=== PATIENT | male | born 1960 | race Caucasian/White ===

== ENCOUNTER → 2016-07-10 | Outpatient (CLI) | payer OTHER ==
[~2016-07-10] MED LIST: ACCOLATE20 MG PO; ACCUNEB 0.0.63 MG/3 INH; ACTOS15 MG PO; AMARYL4 MG PO; AMITRIPTYLINE25 MG PO; ANAPROX DS550 MG PO; ASPI-COR81 M1 PO; ATIVAN1 MG PO; ATROVENT I0.5 MG/2.1 INH; Albuterol Sulfat3 M1 IH; B12,B-12,B 12500 MC1 PO; BRETHINE2.5 M1 PO; BYETTA10 MCG/0.0 SC; CIPROFLOXACIN500 MG PO; CLEOCIN HCL300 MG PO; CLEOCIN150 MG PO; CLOTRIMAZOLE ANTIF1% T; CLOTRIMAZOLE T; DIFLUCAN100 MG PO; ERGOCALCIFER50000 IU PO; FEOSOL45 MG PO; FLOVENT DI50 MCG/Act IH; FLUTICASON0.05 MG/A2 NAS; FLUTICASONE; Flovent 220 M220 MCG INH; GEMFIBROZIL600 MG PO; GOOD NEIGHBOR P20 MG PO; HUMULIN N100 U/ML SC; HUMULIN R100 U/ML SC; HYDROCODONE BIT1 T11 PO; IBU800 M1 PO; IPRATROPIUM 2.2.5 ML IH; JANUVIA100 MG PO; KEFLEX500 MG PO; LASIX40 MG PO; LOPID600 MG PO; LOPRESSOR25 MG PO; LOVAZA PO; LOVAZA1 GM PO; MAG-OX 400400 MG PO; METFORMIN1000 MG PO; METOCLOPRAMIDE5 MG PO; METOPROLOL TAR100 M1 PO; MOTRIN800 MG PO; MULTI VITAMINS1 TAB PO; MYCAMINE100 MG IV; NEURONTIN300 MG PO; NIACIN500 MG PO; NITRO SL; NITRO TRANS0.4 MG/HR TD; NOVOLIN 70/30 PE3 ML SC; NOVOLIN R100 U/ML SC; NOVOLOG 70/30 M10 ML SC; NOVOLOG MIX 70/33 ML SC; NOVOLOG1 UNIT/0.0 SC; OMEPRAZOLE D/R20 MG PO; OXYCODONE AND A1 T13 PO; PEPCID20 MG PO; PERCOCET 325 MG1 TA2 PO; PRINIVIL20 MG PO; PRO STAT; PROAIR HFA0.09 MG/AC IH; PROAIR HFA0.09 MG/AC INH; ROCEPHIN1 GM IV; SEPTRA DS 800 M1 TAB PO; SINGULAIR10 M1 PO; SINGULAIR10 MG PO; SINGULAIR4 MG; SINGULAIR5 MG PO; STRESS TABLETS1 TAB PO; SURFAK STOOL S240 MG PO; ULTRAM50 MG PO; VANCOCIN1000 MG/25 IV; VENTOLIN H0.09 MG/AC INH; VENTOLIN0.09 MG/AC INH; VICODIN1 TAB PO; VITAMIN D22000 UNIT PO; WELCHOL3.75 GM/Pa PO; ZESTRIL20 MG PO
[2016-07-10 12:33] LABS: BASO # 0.1 10*3/uL (0.0-0.1); BASO % 1.1 % (0.0-1.0); EOS # 0.5 10*3/uL (0.0-0.4); HEMATOCRIT 37.4 % (42.0-52.0); HEMOGLOBIN 12.5 g/dl (14.0-18.0); IG # 0.1 10*3/uL (0.0-0.1); LYMPH # 0.8 10*3/uL (1.3-4.4); LYMPH % 12.3 % (27.0-41.0); MEAN CELL VOLUME 85.6 fl (80.0-94.0); MEAN CORPUSCULAR HGB 28.6 pg (27.0-31.0); MEAN CORPUSCULAR HGB CONC 33.4 g/dl (33.0-37.0); MEAN PLATELET VOLUME 10.2 fl (9.6-12.3); MONO # 0.7 10*3/uL (0.1-1.0); MONO % 10.4 % (3.0-9.0); NEUT # 4.2 10*3/uL (2.3-7.9); NEUT % 67.2 % (47.0-73.0); PLATELET COUNT AUTOMATED 235 10*3/uL (130-400); RED BLOOD COUNT 4.37 10*6/uL (4.50-5.90); RED CELL DISTRI WIDTH 13.2 % (0-14.5); WHITE BLOOD COUNT 6.3 10*3/uL (4.8-10.8)
[2016-07-10 12:48] LABS: ALBUMIN 3.5 gm/dl (3.1-4.5); ALKALINE PHOSPHATASE 67 U/L (45-117); BILIRUBIN, DIRECT < 0.1 mg/dL (0.0-0.2); BILIRUBIN, TOTAL 0.2 mg/dl (0.2-1.0); BUN 16 mg/dl (7-24); CARBON DIOXIDE 21 mmol/L (21-32); CHLORIDE 98 mmol/L (98-107); EST GLOM FILT AFRICAN AMERICAN > 60 ml/min; GLUCOSE 284 mg/dL (65-99); POTASSIUM 5.1 mmol/L (3.5-5.1); SGOT/AST 64 IU/L (3-35); SGPT/ALT 39 U/L (12-78); SODIUM 132 mmol/L (136-145); TOTAL PROTEIN 8.2 gm/dL (6.4-8.2)
== END | disposition home or self-care (01) ==
LOC: LAB 12:01
PROVIDERS: Family Medicine
DX: R06.02 Shortness of breath (principal); R19.7 Diarrhea, unspecified; R11.2 Nausea with vomiting, unspecified; J02.9 Acute pharyngitis, unspecified; R05 Cough; R53.1 Weakness; I10 Essential (primary) hypertension; Z87.891 Personal history of nicotine dependence

== ENCOUNTER → 2017-03-08 | Outpatient (CLI) | payer OTHER ==
[2017-03-08 14:07] LABS: ALBUMIN 3.4 gm/dl (3.1-4.5); CREATININE 1.49 mg/dL (0.70-1.30); POTASSIUM 4.9 mmol/L (3.5-5.1); TOTAL PROTEIN 8.9 gm/dL (6.4-8.2)
[2017-03-08 14:14] LABS: THYROID STIM HORMONE (HS) 1.7 uIU/ml (0.358-4.75)
[2017-03-08 14:16] LABS: FREE T4 0.96 ng/dl (0.76-1.46)
== END | disposition home or self-care (01) ==
LOC: LAB 01:55
PROVIDERS: Internal Medicine Endocrinology, Diabetes & Metabolism
DX: E11.65 Type 2 diabetes mellitus with hyperglycemia (principal); E03.9 Hypothyroidism, unspecified; E55.9 Vitamin D deficiency, unspecified; E78.2 Mixed hyperlipidemia

== ENCOUNTER → 2017-03-11 | Outpatient (CLI) | payer OTHER ==
[2017-03-12 08:12] LABS: LDL CHOLESTEROL (DIRECT) 160 mg/dL (0-99)
== END | disposition home or self-care (01) ==
LOC: LAB 03:01
PROVIDERS: Internal Medicine Endocrinology, Diabetes & Metabolism
DX: E11.65 Type 2 diabetes mellitus with hyperglycemia (principal); E03.9 Hypothyroidism, unspecified; E55.9 Vitamin D deficiency, unspecified; E78.2 Mixed hyperlipidemia

== ENCOUNTER → 2017-03-16 | Outpatient (CLI) | payer OTHER ==
[~2017-03-16] MED LIST changes: +BENADRYL ALLERG25 M5 PO; +KENALOG 0.1%80 GM T
== END | disposition home or self-care (01) ==
LOC: RAD 13:23
DX: R10.84 Generalized abdominal pain (principal); R11.2 Nausea with vomiting, unspecified

== ENCOUNTER 2017-03-18 14:55 | Emergency (ER) | payer OTHER ==
[~2017-03-18] VITALS: Ht 165.1 cm; Wt 118.8 kg
[~2017-03-18 14:55] MED LIST changes: -BENADRYL ALLERG25 M5 PO; -KENALOG 0.1%80 GM T
[2017-03-18 16:06] LABS: BASO # 0.1 10*3/uL (0.0-0.1); BASO % 1.3 % (0.0-1.0); EOS # 0.4 10*3/uL (0.0-0.4); HEMATOCRIT 35.6 % (42.0-52.0); HEMOGLOBIN 12.1 g/dl (14.0-18.0); LYMPH # 1.7 10*3/uL (1.3-4.4); LYMPH % 26.1 % (27.0-41.0); MEAN CELL VOLUME 82.6 fl (80.0-94.0); MEAN CORPUSCULAR HGB 28.1 pg (27.0-31.0); MEAN PLATELET VOLUME 10.8 fl (9.6-12.3); MONO # 0.5 10*3/uL (0.1-1.0); MONO % 7.6 % (3.0-9.0); NEUT # 3.7 10*3/uL (2.3-7.9); NEUT % 58.5 % (47.0-73.0); PLATELET COUNT AUTOMATED 262 10*3/uL (130-400); RED BLOOD COUNT 4.31 10*6/uL (4.50-5.90); RED CELL DISTRI WIDTH 11.9 % (0-14.5); WHITE BLOOD COUNT 6.3 10*3/uL (4.8-10.8)
[2017-03-18 16:32] LABS: ALBUMIN 3.8 gm/dl (3.1-4.5); CREATININE 2.23 mg/dL (0.70-1.30); TOTAL PROTEIN 9.2 gm/dL (6.4-8.2)
[2017-03-18 16:35] LABS: POTASSIUM 6.2 mmol/L (3.5-5.1)
[2017-03-18] MEDS ORDERED: BENADRYL ALLERG25 M5 PO (16:48)
[2017-03-18] MEDS ORDERED: PEPCID20 MG PO (16:48)
[2017-03-18] MEDS ORDERED: KENALOG 0.1%80 GM T (16:48)
== END 2017-03-18 17:44 | disposition home or self-care (01) ==
LOC: ED 14:55
PROVIDERS: Physician Assistant
DX: T63.441A Toxic effect of venom of bees, accidental (unintentional), initial encounter (principal); R73.9 Hyperglycemia, unspecified; Z95.1 Presence of aortocoronary bypass graft; Z87.891 Personal history of nicotine dependence; Z98.890 Other specified postprocedural states; Z79.82 Long term (current) use of aspirin; Z79.899 Other long term (current) drug therapy; Z88.0 Allergy status to penicillin; Z88.6 Allergy status to analgesic agent; Z88.5 Allergy status to narcotic agent; Z88.8 Allergy status to other drugs, medicaments and biological substances; Y92.9 Unspecified place or not applicable

== ENCOUNTER → 2017-04-08 | Outpatient (CLI) | payer OTHER ==
[~2017-04-08] MED LIST changes: +BENADRYL ALLERG25 M5 PO; +KENALOG 0.1%80 GM T
== END | disposition home or self-care (01) ==
LOC: ORTHO 04:08
DX: M17.11 Unilateral primary osteoarthritis, right knee (principal); M21.061 Valgus deformity, not elsewhere classified, right knee; E11.9 Type 2 diabetes mellitus without complications

== ENCOUNTER 2017-09-19 13:58 | Emergency (ER) | payer OTHER ==
[~2017-09-19] VITALS: Ht 165.1 cm; Wt 120.2 kg
--- NOTE | ~2017-09-19 | EKG ---
[place], [place] ELECTROCARDIOGRAM REPORT NAME: KIT CRAWFORD UNIT #: [id number] ROOM: DOCTOR: FLACO FLORES MD,MAXIME BIRTHDATE: [birth year] DOS: 09/19/2017 Electrocardiogram done on 09/19/2017 at 3:12 p.m. The echocardiogram shows evidence of normal sinus rhythm with heart rate 75 beats per minute. Nonspecific ST-T changes noted. Possibility of old inferior myocardial infarction can be excluded. Poor R-wave progression was also noted. Rule out ischemia. MAXIME SAM MD CM:EKGRPT:ELECTROCARDIOGRAM REPORT [id number] MAXIME FLORES MD
[2017-09-19 14:45] LABS: BASO # 0.1 10*3/uL (0.0-0.1); BASO % 1.2 % (0.0-1.0); EOS # 0.5 10*3/uL (0.0-0.4); EOS % 8.3 % (1.0-4.0); HEMATOCRIT 33.7 % (42.0-52.0); HEMOGLOBIN 10.8 g/dl (14.0-18.0); LYMPH # 1.9 10*3/uL (1.3-4.4); LYMPH % 32.7 % (27.0-41.0); MEAN CELL VOLUME 84.9 fl (80.0-94.0); MEAN CORPUSCULAR HGB 27.2 pg (27.0-31.0); MONO # 0.6 10*3/uL (0.1-1.0); MONO % 9.9 % (3.0-9.0); NEUT # 2.7 10*3/uL (2.3-7.9); PLATELET COUNT AUTOMATED 287 10*3/uL (130-400); RED BLOOD COUNT 3.97 10*6/uL (4.50-5.90); RED CELL DISTRI WIDTH 13.8 % (0-14.5); WHITE BLOOD COUNT 5.7 10*3/uL (4.8-10.8)
[2017-09-19 14:54] LABS: ACT PARTIAL THROMBO TIME 24.4 SECONDS (20.8-31.5)
[2017-09-19 15:01] LABS: ALBUMIN 3.4 gm/dl (3.1-4.5); ALKALINE PHOSPHATASE 92 U/L (45-117); BUN 38 mg/dl (7-24); CHLORIDE 93 mmol/L (98-107); CREATININE 1.68 mg/dL (0.70-1.30); LIPASE 409 U/L (73-393); POTASSIUM 4.9 mmol/L (3.5-5.1); SGOT/AST 12 IU/L (3-35); SGPT/ALT 22 U/L (12-78); SODIUM 129 mmol/L (136-145); TOTAL PROTEIN 8.9 gm/dL (6.4-8.2)
[2017-09-19 15:02] LABS: TROPONIN I < 0.015 ng/ml (<0.045)
[2017-09-19 15:34] LABS: BILIRUBIN NEGATIVE (NEGATIVE); BLOOD NEGATIVE (NEGATIVE); CLARITY CLEAR (CLEAR); COLOR YELLOW (YELLOW); GLUCOSE 3+ (NEGATIVE); KETONE NEGATIVE (NEGATIVE); LEUKO ESTERASE NEGATIVE (NEGATIVE); NITRITE NEGATIVE (NEGATIVE); PH 5.5 (5.0-9.0); SPECIFIC GRAVITY <= 1.005 (1.005-1.030); UROBILINOGEN 0.2 E.U./dl (0.2-1.0)
[2017-09-19 15:44] LABS: BACTERIA TRACE; RBC 0-2 rbc/hpf (0-2); WBC 0-2 wbc/hpf (0-5)
== END 2017-09-19 16:40 | disposition home or self-care (01) ==
LOC: ED 13:58
PROVIDERS: Nurse Practitioner Family
DX: E11.65 Type 2 diabetes mellitus with hyperglycemia (principal); M79.2 Neuralgia and neuritis, unspecified; I25.10 Atherosclerotic heart disease of native coronary artery without angina pectoris; J44.9 Chronic obstructive pulmonary disease, unspecified; K21.9 Gastro-esophageal reflux disease without esophagitis; I10 Essential (primary) hypertension; E78.5 Hyperlipidemia, unspecified; E66.01 Morbid (severe) obesity due to excess calories; Z86.73 Personal history of transient ischemic attack (TIA), and cerebral infarction without residual deficits; Z98.890 Other specified postprocedural states; Z87.891 Personal history of nicotine dependence; Z95.1 Presence of aortocoronary bypass graft; Z79.899 Other long term (current) drug therapy; Z79.82 Long term (current) use of aspirin; Z79.4 Long term (current) use of insulin; Z88.0 Allergy status to penicillin; Z88.8 Allergy status to other drugs, medicaments and biological substances; Z88.5 Allergy status to narcotic agent; Z88.6 Allergy status to analgesic agent

== ENCOUNTER → 2018-01-19 | Outpatient (CLI) | payer OTHER ==
[2018-01-19 15:54] LABS: BASO # 0.1 10*3/uL (0.0-0.1); BASO % 0.8 % (0.0-1.0); EOS # 0.8 10*3/uL (0.0-0.4); EOS % 6.4 % (1.0-4.0); HEMOGLOBIN 10.6 g/dl (14.0-18.0); LYMPH # 3.3 10*3/uL (1.3-4.4); LYMPH % 28.2 % (27.0-41.0); MEAN CELL VOLUME 82.3 fl (80.0-94.0); MEAN CORPUSCULAR HGB 26.4 pg (27.0-31.0); MEAN CORPUSCULAR HGB CONC 32.1 g/dl (33.0-37.0); MEAN PLATELET VOLUME 10.1 fl (9.6-12.3); MONO # 0.7 10*3/uL (0.1-1.0); MONO % 5.8 % (3.0-9.0); NEUT # 6.8 10*3/uL (2.3-7.9); NEUT % 57.6 % (47.0-73.0); PLATELET COUNT AUTOMATED 342 10*3/uL (130-400); RED BLOOD COUNT 4.01 10*6/uL (4.50-5.90); RED CELL DISTRI WIDTH 12.4 % (0-14.5); WHITE BLOOD COUNT 11.8 10*3/uL (4.8-10.8)
[2018-01-19 16:14] LABS: ALBUMIN 3.5 gm/dl (3.1-4.5); ALKALINE PHOSPHATASE 83 U/L (45-117); BILIRUBIN, DIRECT < 0.1 mg/dL (0.0-0.2); BUN 44 mg/dl (7-24); CHLORIDE 95 mmol/L (98-107); CHOLESTEROL 329 mg/dL (<200); CREATININE 1.99 mg/dL (0.70-1.30); HDL CHOLESTEROL 32 mg/dl (40-60); POTASSIUM 5.7 mmol/L (3.5-5.1); SGOT/AST 10 IU/L (3-35); SGPT/ALT 12 U/L (12-78); SODIUM 129 mmol/L (136-145); THYROXINE (T4) TOTAL 4.7 ug/dl (4.5-12.1); TOTAL PROTEIN 8.6 gm/dL (6.4-8.2); TRIGLYCERIDES 803 mg/dl (<150)
== END | disposition home or self-care (01) ==
LOC: LAB 14:51
PROVIDERS: Family Medicine
DX: I10 Essential (primary) hypertension (principal); E88.81 Metabolic syndrome and other insulin resistance; I95.9 Hypotension, unspecified; E78.00 Pure hypercholesterolemia, unspecified; M19.90 Unspecified osteoarthritis, unspecified site; M54.5 Low back pain; Z91.81 History of falling

== ENCOUNTER 2018-05-15 12:32 | Emergency (ER) | payer OTHER ==
[~2018-05-15] VITALS: Ht 165.1 cm; Wt 104.8 kg
[~2018-05-15 12:32] MED LIST changes: -ACCUNEB 0.0.63 MG/3 INH; +ALBUTEROL0.63 MG/3 INH; +ALLOPURINOL100 MG PO; -ASPI-COR81 M1 PO; +ASPIR 8181 MG PO; +ATARAX,VISTARIL50 MG PO; -HUMULIN R100 U/ML SC; +HUMULIN R500 UNIT/1 SQ; +ISOSORBIDE DINI30 MG PO; +LOPID600 M1 PO; +NITROGLYCERIN0.4 MG SL; +NITROSTAT0.3 M1 SL; +ONDANSETRON HYDR4 MG PO; +PROVENTIL HFA6.7 GM INH; -VENTOLIN H0.09 MG/AC INH; -VITAMIN D22000 UNIT PO; +VITAMIN D50000 UNIT PO
[2018-05-15] MEDS ORDERED: PERCOCET 5-3251 EACH PO (13:02)
== END 2018-05-15 13:12 | disposition home or self-care (01) ==
LOC: ED 12:32
DX: E11.40 Type 2 diabetes mellitus with diabetic neuropathy, unspecified (principal); I10 Essential (primary) hypertension; J44.9 Chronic obstructive pulmonary disease, unspecified; I25.2 Old myocardial infarction; F17.200 Nicotine dependence, unspecified, uncomplicated; Z88.0 Allergy status to penicillin; Z88.8 Allergy status to other drugs, medicaments and biological substances; Z91.041 Radiographic dye allergy status; Z88.6 Allergy status to analgesic agent; Z79.82 Long term (current) use of aspirin; Z79.899 Other long term (current) drug therapy; Z79.84 Long term (current) use of oral hypoglycemic drugs; Z89.021 Acquired absence of right finger(s); Z95.1 Presence of aortocoronary bypass graft; Z86.73 Personal history of transient ischemic attack (TIA), and cerebral infarction without residual deficits

== ENCOUNTER 2018-07-23 13:50 | Emergency (ER) | payer OTHER ==
[~2018-07-23] VITALS: Wt 104.3 kg
[~2018-07-23 13:50] MED LIST changes: +PERCOCET 5-3251 EACH PO
[2018-07-23] MEDS ORDERED: PERCOCET 5-3251 EACH PO (16:00)
== END 2018-07-23 16:10 | disposition home or self-care (01) ==
LOC: ED 13:50
DX: S40.011A Contusion of right shoulder, initial encounter (principal); M54.2 Cervicalgia; M25.531 Pain in right wrist; R07.81 Pleurodynia; M79.644 Pain in right finger(s); R06.02 Shortness of breath; I25.10 Atherosclerotic heart disease of native coronary artery without angina pectoris; J44.9 Chronic obstructive pulmonary disease, unspecified; I10 Essential (primary) hypertension; K21.9 Gastro-esophageal reflux disease without esophagitis; E66.01 Morbid (severe) obesity due to excess calories; E78.5 Hyperlipidemia, unspecified; E11.40 Type 2 diabetes mellitus with diabetic neuropathy, unspecified; E11.621 Type 2 diabetes mellitus with foot ulcer; Z79.4 Long term (current) use of insulin; Z87.891 Personal history of nicotine dependence; W20.8XXA Other cause of strike by thrown, projected or falling object, initial encounter; Y93.89 Activity, other specified; Y92.89 Other specified places as the place of occurrence of the external cause; Y99.8 Other external cause status

== ENCOUNTER → 2018-08-07 | Outpatient (CLI) | payer OTHER ==
[2018-08-07 11:25] LABS: BASO # 0.1 10*3/uL (0.0-0.1); BASO % 1.2 % (0.0-1.0); EOS # 0.5 10*3/uL (0.0-0.4); EOS % 7.2 % (1.0-4.0); HEMATOCRIT 37.9 % (42.0-52.0); HEMOGLOBIN 12.6 g/dl (14.0-18.0); LYMPH # 3.2 10*3/uL (1.3-4.4); LYMPH % 46.9 % (27.0-41.0); MEAN CELL VOLUME 82.6 fl (80.0-94.0); MEAN CORPUSCULAR HGB 27.5 pg (27.0-31.0); MEAN CORPUSCULAR HGB CONC 33.2 g/dl (33.0-37.0); MEAN PLATELET VOLUME 9.8 fl (9.6-12.3); MONO # 0.5 10*3/uL (0.1-1.0); MONO % 7.1 % (3.0-9.0); NEUT # 2.6 10*3/uL (2.3-7.9); NEUT % 37.5 % (47.0-73.0); PLATELET COUNT AUTOMATED 295 10*3/uL (130-400); RED BLOOD COUNT 4.59 10*6/uL (4.50-5.90); WHITE BLOOD COUNT 6.8 10*3/uL (4.8-10.8)
[2018-08-07 11:52] LABS: ALBUMIN 3.3 gm/dl (3.1-4.5); ALKALINE PHOSPHATASE 78 U/L (45-117); BILIRUBIN, DIRECT < 0.1 mg/dL (0.0-0.2); BUN 25 mg/dl (7-24); CHLORIDE 98 mmol/L (98-107); CREATININE 1.23 mg/dL (0.70-1.30); POTASSIUM 4.6 mmol/L (3.5-5.1); SGOT/AST 17 IU/L (3-35); SGPT/ALT 21 U/L (12-78); SODIUM 134 mmol/L (136-145); TOTAL PROTEIN 8.3 gm/dL (6.4-8.2)
== END | disposition home or self-care (01) ==
LOC: LAB 10:57
PROVIDERS: Family Medicine
DX: I10 Essential (primary) hypertension (principal); M10.9 Gout, unspecified

== ENCOUNTER → 2018-10-09 | Outpatient (CLI) | payer OTHER | END | disposition home or self-care (01) | LOC: RAD 14:23 | DX: R07.81 Pleurodynia (principal); J44.9 Chronic obstructive pulmonary disease, unspecified; W19.XXXA Unspecified fall, initial encounter; Y93.89 Activity, other specified; Y92.89 Other specified places as the place of occurrence of the external cause; Y99.8 Other external cause status ==

== ENCOUNTER → 2018-11-25 | Outpatient (CLI) | payer OTHER | END | disposition home or self-care (01) | LOC: RAD 15:18 | DX: M47.816 Spondylosis without myelopathy or radiculopathy, lumbar region (principal) ==

== ENCOUNTER → 2019-02-17 | Outpatient (CLI) | payer OTHER | END | disposition home or self-care (01) | LOC: LAB 14:26 | DX: S31.109A Unspecified open wound of abdominal wall, unspecified quadrant without penetration into peritoneal cavity, initial encounter (principal); X58.XXXA Exposure to other specified factors, initial encounter; Y93.89 Activity, other specified; Y92.89 Other specified places as the place of occurrence of the external cause; Y99.8 Other external cause status ==

== ENCOUNTER → 2019-02-18 | Outpatient (CLI) | payer OTHER | END | disposition home or self-care (01) | LOC: LAB 10:22 | DX: R19.7 Diarrhea, unspecified (principal) ==

== ENCOUNTER 2019-04-25 15:47 | Inpatient (IN) | payer OTHER ==
[~2019-04-25] VITALS: Ht 170.1 cm; Wt 106.7 kg
[2019-04-25 15:54] VITALS: BP 157/76
[2019-04-25 16:20] LABS: BASO # 0.1 10*3/uL (0.0-0.1); BASO % 0.9 % (0.0-1.0); EOS # 0.3 10*3/uL (0.0-0.4); EOS % 3.6 % (1.0-4.0); HEMATOCRIT 37.6 % (42.0-52.0); HEMOGLOBIN 12.2 g/dl (14.0-18.0); LYMPH # 2.7 10*3/uL (1.3-4.4); LYMPH % 30.5 % (27.0-41.0); MEAN CELL VOLUME 83.6 fl (80.0-94.0); MEAN CORPUSCULAR HGB 27.1 pg (27.0-31.0); MEAN CORPUSCULAR HGB CONC 32.4 g/dl (33.0-37.0); MEAN PLATELET VOLUME 10.4 fl (9.6-12.3); MONO # 0.7 10*3/uL (0.1-1.0); MONO % 7.8 % (3.0-9.0); NEUT % 56.7 % (47.0-73.0); PLATELET COUNT AUTOMATED 247 10*3/uL (130-400); RED CELL DISTRI WIDTH 13.7 % (0-14.5); WHITE BLOOD COUNT 8.8 10*3/uL (4.8-10.8)
[2019-04-25 16:30] VITALS: BP 138/73
[2019-04-25 16:48] LABS: ACT PARTIAL THROMBO TIME 25.1 SECONDS (20.0-32.1); INTERNATIONAL NORM RATIO 0.9 (2.0-3.5)
[2019-04-25 16:55] LABS: ALKALINE PHOSPHATASE 73 U/L (45-117); BUN 22 mg/dl (7-24); CHLORIDE 106 mmol/L (98-107); CREATININE 0.99 mg/dL (0.70-1.30); POTASSIUM 4.5 mmol/L (3.5-5.1); SGOT/AST 14 IU/L (3-35); SGPT/ALT 15 U/L (12-78); SODIUM 136 mmol/L (136-145); TOTAL PROTEIN 7.6 gm/dL (6.4-8.2)
[2019-04-25 16:58] LABS: TROPONIN I 0.192 ng/ml (<0.045)
[2019-04-25 17:00] VITALS: BP 146/81
[2019-04-25 17:30] VITALS: BP 119/93
[2019-04-25 18:00] VITALS: BP 143/82
--- NOTE | 2019-04-25 18:29 | NUR ---
[facility] 59[facility] , under the services of AVEL Norman DO with a diagnosis of NONSTEMI. Chief complaint is CHEST PAIN. Patient arrived via bed from ER. Monitor applied. Initial assessment completed. Vital signs taken and recorded. AVEL NORMAN DO notified of admission to the unit. Orders received. See assessment for past medical history, medications and allergies. Patient and/or family oriented to unit. [facility] visitation policy reviewed. Clothing/patient valuable form completed. LONG PATEL
--- NOTE | 2019-04-25 18:48 | NUR ---
PT STATES HE IS UNSURE OF HOME MEDS. HE STATES HIS BROTHER WILL BRING THEM IN TOMORROW.
--- NOTE | 2019-04-25 19:00 | NUR ---
DR. TREJO NOTIFIED OF CRITICAL TROPONIN. NO ORDERS AT THIS TIME.
[2019-04-25 20:00] VITALS: BP 138/80
--- NOTE | 2019-04-25 21:08 | NUR ---
MESSAGE LEFT WITH DR. WHITE'S ANSWERING SERVICE ABOUT PT TRIGEMINY. DR SWAN ALSO NOTIFIED. NO ORDERS AT THIS TIME. PT ALERT AND VOICES NO COMPLAINTS.
--- NOTE | 2019-04-25 22:41 | NUR ---
DR. SWAN NOTIFIED OF CRITICAL TROPONIN. NO ORDERS AT THIS TIME.
--- NOTE | 2019-04-25 23:50 | NUR ---
PT HEPARIN DRIP INCREASED BY 2 UNITS PER PROTOCOL. VERIFIED WITH EM TURCIOS
[2019-04-26] VITALS: BP 138/79
--- NOTE | 2019-04-26 02:13 | NUR ---
DR. SWAN NOTIFIED OF PT BEING IN TRIGEMINY ON AND OFF. NO NEW ORDERS AT THIS TIME.
[2019-04-26 06:06] LABS: BUN 23 mg/dl (7-24); CHLORIDE 105 mmol/L (98-107); CHOLESTEROL 200 mg/dL (<200); CREATININE 0.97 mg/dL (0.70-1.30); HDL CHOLESTEROL 26 mg/dl (40-60); PHOSPHOROUS 2.9 mg/dL (2.5-4.9); SODIUM 137 mmol/L (136-145); TRIGLYCERIDES 553 mg/dl (<150)
[2019-04-26 06:12] LABS: BASO # 0.1 10*3/uL (0.0-0.1); BASO % 0.7 % (0.0-1.0); EOS # 0.3 10*3/uL (0.0-0.4); EOS % 4.5 % (1.0-4.0); HEMATOCRIT 34.1 % (42.0-52.0); HEMOGLOBIN 10.9 g/dl (14.0-18.0); LYMPH # 2.4 10*3/uL (1.3-4.4); LYMPH % 35.6 % (27.0-41.0); MEAN CELL VOLUME 83.8 fl (80.0-94.0); MEAN CORPUSCULAR HGB 26.8 pg (27.0-31.0); MEAN PLATELET VOLUME 10.3 fl (9.6-12.3); MONO # 0.6 10*3/uL (0.1-1.0); MONO % 8.8 % (3.0-9.0); NEUT # 3.4 10*3/uL (2.3-7.9); NEUT % 49.7 % (47.0-73.0); PLATELET COUNT AUTOMATED 219 10*3/uL (130-400); RED BLOOD COUNT 4.07 10*6/uL (4.50-5.90); RED CELL DISTRI WIDTH 13.7 % (0-14.5); WHITE BLOOD COUNT 6.8 10*3/uL (4.8-10.8)
--- NOTE | 2019-04-26 06:50 | NUR ---
HEPARIN DRIP INCREASED BY 2 UNITS PER PROTOCOL. VERIFIED BY EM TURCIOS
--- NOTE | 2019-04-26 08:30 | NUR ---
Patient resting quietly with no c/o discomfort. Respirations easy and regular. Vital signs stable. No overt distress. DHEERAJ POLANCO R
[2019-04-26 12:00] VITALS: BP 98/77
--- NOTE | 2019-04-26 15:00 | NUR ---
HEPARIN ADJUSTED PER POLICY. NEXT PTT ORDERED. DR WHITE IN TO SEE PT. HE STATES HEPARIN FOR 48 HRS.
[2019-04-26 16:00] VITALS: BP 148/63
[2019-04-26 20:00] VITALS: BP 145/59
--- NOTE | 2019-04-26 20:16 | NUR ---
PATIENT LAYING IN BED WATCHING TV. BLOOD SUGAR 249. COVEREGE GIVEN PER SLIDING SCALE. HEPARIN GTT INFUSING INTO LEFT UPPER ARM PER ORDER. LUNGS DIMINISHED BILATERALLY. NORMOACTIVE BS X4. 2+ BLE EDEMA NOTED. CALL LIGHT WITHIN REACH. BED LOCKED IN LOWEST POSITION.
--- NOTE | 2019-04-26 20:50 | NUR ---
PER PATIENT PRN NORCO EFFECTIVE.
--- NOTE | 2019-04-26 21:43 | NUR ---
PATIENT'S APTT 28.2. HERPARIN GTT INCREASED 2 UNITS/KG/HR PER ORDER TO 16.7 UNITS/KG/HR. VERIFIED WITH EM TURCIOS.
--- NOTE | 2019-04-26 22:38 | NUR ---
24 HR chart check completed.
[2019-04-27] VITALS: BP 157/72
[2019-04-27 04:09] LABS: BASO # 0.1 10*3/uL (0.0-0.1); BASO % 1.2 % (0.0-1.0); EOS # 0.4 10*3/uL (0.0-0.4); EOS % 5.4 % (1.0-4.0); HEMATOCRIT 35.6 % (42.0-52.0); HEMOGLOBIN 11.6 g/dl (14.0-18.0); LYMPH # 2.7 10*3/uL (1.3-4.4); LYMPH % 40.1 % (27.0-41.0); MEAN CELL VOLUME 83.4 fl (80.0-94.0); MEAN CORPUSCULAR HGB 27.2 pg (27.0-31.0); MEAN CORPUSCULAR HGB CONC 32.6 g/dl (33.0-37.0); MEAN PLATELET VOLUME 9.8 fl (9.6-12.3); MONO # 0.6 10*3/uL (0.1-1.0); MONO % 8.3 % (3.0-9.0); NEUT # 2.9 10*3/uL (2.3-7.9); NEUT % 44.1 % (47.0-73.0); PLATELET COUNT AUTOMATED 221 10*3/uL (130-400); RED BLOOD COUNT 4.27 10*6/uL (4.50-5.90); RED CELL DISTRI WIDTH 13.6 % (0-14.5); WHITE BLOOD COUNT 6.7 10*3/uL (4.8-10.8)
[2019-04-27 04:23] LABS: ALBUMIN 2.7 gm/dl (3.1-4.5); ALKALINE PHOSPHATASE 67 U/L (45-117); BUN 26 mg/dl (7-24); CHLORIDE 100 mmol/L (98-107); CREATININE 1.13 mg/dL (0.70-1.30); POTASSIUM 4.2 mmol/L (3.5-5.1); SGOT/AST 13 IU/L (3-35); SGPT/ALT 17 U/L (12-78); SODIUM 134 mmol/L (136-145); TOTAL PROTEIN 6.9 gm/dL (6.4-8.2)
--- NOTE | 2019-04-27 04:38 | NUR ---
NOTIFIED DR. PATTERSON THAT APTT WAS 36.6 AND HEPARIN GTT INCREASED FROM 16.7 UNITS/KG/HR TO 18.7 UNITS/KR/HR. EM TURCIOS VERIFIED. NO NEW ORDERS.
--- NOTE | 2019-04-27 06:36 | NUR ---
PATIENT'S BLOOD SUGAR WAS 258. COVERAGE GIVEN PER ORDER. HEPARIN GTT INFUSING AT 18.7 UNITS/KG/HR. PATIENT SITTING AT THE EDGE OF THE BED. CALL LIGHT WITHIN REACH.
[2019-04-27 08:00] VITALS: BP 144/70
--- NOTE | 2019-04-27 08:41 | NUR ---
KIT CRAWFORD [id number] Please refer to the physician's history and physical for past medical history, comorbid conditions, and allergies. Diagnosis: NSTEMI Bandar Score: 16,AT RISK WOUND DESCRIPTIONS: Wound Number: 1 Location of the wound: abdominal fold and periarea Type of wound: fungal Thickness: Partial Size: 27.0cm x 54.5cm x 0.1cm Tunneling: none Undermining: none Sinus Tract: none Presence of Exudate: Serous Amount: Light Color: Red Odor: Musty Periwound Skin Appearance: Normal Wound edges: approximated Pain (associated with wound): very tender to touch How does patient state this happened? pt stated that this has been going on since he had surgery several years ago Wound Number: 2 Location of the wound: gluteal cleft Type of wound: rash Thickness: Partial Size: 25.0cm x 9.5cm x <0.1cm Tunneling: none Undermining: none Sinus Tract: none Presence of Exudate: none Amount: None Color: Red with white plaques Odor: None Periwound Skin Appearance: Normal Wound edges: approximated Pain (associated with wound): none at time of assessment How does patient state this happened? pt stated that he has been treated for fungal in the past and the ointment is not working Wound Number: 3 Location of the wound: left side near ribs Type of wound: rash Thickness: Partial Size: 3.5cm x 5.0cm x <0.1cm Tunneling: none Undermining: none Sinus Tract: none Presence of Exudate: none Amount: None Color: Red with white plaques Odor: None Periwound Skin Appearance: Normal Wound edges: approximated Pain (associated with wound): none at time of assessment How does patient state this happened? pt stated that he has been treated for fungal in the past and the ointment is not working Wound Number: 4 Location of the wound: midl back Type of wound: rash Thickness: Partial Size: 19.0cm x 33.0cm x <0.1cm Tunneling: none Undermining: none Sinus Tract: none Presence of Exudate: none Amount: None Color: Red with white plaques Odor: None Periwound Skin Appearance: Normal Wound edges: approximated Pain (associated with wound): none at time of assessment How does patient state this happened? pt stated that he has been treated for fungal in the past and the ointment is not working Wound Number: 5 Location of the wound: left upper back Type of wound: rash Thickness: Partial Size: 12.0cm x 9.0cm x <0.1cm Tunneling: none Undermining: none Sinus Tract: none Presence of Exudate: none Amount: None Color: Red with white plaques Odor: None Periwound Skin Appearance: Normal Wound edges: approximated Pain (associated with wound): none at time of assessment How does patient state this happened? pt stated that he has been treated for fungal in the past and the ointment is not working Wound Number: 6 Location of the wound: right upper back Type of wound: rash Thickness: Partial Size: 4.0cm x 3.5cm x <0.1cm Tunneling: none Undermining: none Sinus Tract: none Presence of Exudate: none Amount: None Color: Red with white plaques Odor: None Periwound Skin Appearance: Normal Wound edges: approximated Pain (associated with wound): none at time of assessment How does patient state this happened? pt stated that he has been treated for fungal in the past and the ointment is not working Surface the patient is resting on: Position Pro SKIN PREVENTION RECOMMENDATION: 1. Pressure redistribution support surface as appropriate 2. Elevate heels 3. Remove boots/TEDS every shift and reapply 4. Head of bed 30 degrees as tolerated 5. Assess nutrition and hydration 6. Manage moisture 7. Avoid the use of containment devices while in bed 8. Use absorptive products on surfaces limit layers of linens on bed 9. Turn and reposition every 1-2 hours in bed and every 1 hour in chair as tolerated 10. Weight shifts every 15 minutes while up in chair 11. Offloading with pillows or device to keep heels elevated off bed 12. Monitor skin at least every shift 13. Inspect under medical devices twice a day WOUND TREATMENT RECOMMENDATIONS: Heel raiser pro boots to bilateral feet while in bed. Cleanse areas to left side near ribs, mid back, left upper back and right upper back with soap and water and apply hydrocortison 0.5% BID. Cleanse abdominal fold and roland area with soap and water and pat dry then apply nystatin powder BID.Heel raiser pro boots to bilateral feet while in bed.
--- NOTE | 2019-04-27 11:58 | NUR ---
Sweetie RIDDLE APARTMENT MAINTENANCE TECHNICIAN NOTIFIED OF APTT AND AJUSTMENT PER POLICY FOR HEPARIN GTT. NEW APTT ORDERED PER POLICY.
[2019-04-27 12:00] VITALS: BP 155/60
--- NOTE | 2019-04-27 13:13 | NUR ---
Bow Stapler in to talk to patient. Patient states lives at home with brother. There are few steps in the home. Physician: tejinder Pharmacy: [facility] Home health services: none Patient's level of ADLs: MINIMAL ASSIST Patient has working utilities: all working DME: electric wheelchair Follow-up physician's appointment after d/c: will be made by hospitalist nruse director upon discharge Does patient want to access PORTAL?: no Discharge plan discussed with patient, he states he lives in a two story home with his brother, he stated he stays on one floor, he has an electric wheelchair that he uses for ambulation and is independent in adls, he states he will return home when medically stable, discussed with him VNA and he declines any home needs at this time, case management will follow. JUAN CARLOS CROWE
--- NOTE | 2019-04-27 15:25 | NUR ---
ORDERS RECEIVED TO STOP HEPARIN AT 1730 PER M JANESSA HOUSER
[2019-04-27 16:00] VITALS: BP 142/67
--- NOTE | 2019-04-27 16:21 | NUR ---
Echo in progress.
[2019-04-27 20:00] VITALS: BP 117/63
--- NOTE | 2019-04-27 20:13 | NUR ---
PATIENT LAYING IN BED. BLOOD SUGAR WAS 302. HUMALOG GIVEN PER SLIDING SCALE. EDUCATED PATIENT ON ADA 1800 DIET AFTER PATIENT STATED HE ATE ICE CREAM AND CAKE WITH DINNER. PATIENT DENIES ANY OTHER NEEDS AT THIS TIME. CALL LIGHT WITHIN REACH. BED LOCKED IN LOWEST POSITION. PATIENT DENIES CHEST PAIN.
[2019-04-28] VITALS: BP 129/55
--- NOTE | 2019-04-28 01:18 | NUR ---
Patient resting quietly in bed with no c/o discomfort. Respirations easy and regular. Vital signs stable. No overt distress. Call light within reach. HISSOM,CALLIE
--- NOTE | 2019-04-28 02:03 | NUR ---
24 HR chart check completed.
--- NOTE | 2019-04-28 03:49 | NUR ---
Patient sleeping. Respirations relaxed and easy. Siderails up . [place] on. Call light within reach HISSOM,CALLIE
--- NOTE | 2019-04-28 04:30 | NUR ---
Patient stated he will continue to care for these areas upon discharge as he has done in the past
--- NOTE | 2019-04-28 05:56 | NUR ---
BLOOD SUGAR 285
--- NOTE | 2019-04-28 08:30 | NUR ---
Patient resting quietly with no c/o discomfort. Respirations easy and regular. Vital signs stable. No overt distress. DHEERAJ POLANCO R
--- NOTE | 2019-04-28 09:00 | NUR ---
case management visits with patient, he stated he would be discharged to home today, discussed with him VNA and he declines any home services
[2019-04-28 12:00] VITALS: BP 132/59
[2019-04-28] MEDS ORDERED: CLOPIDOGREL75 MG PO (14:03)
[2019-04-28] MEDS ORDERED: HUMALOG100 UNIT/1 SQ (14:03)
[2019-04-28] MEDS ORDERED: Humalog SQ (14:03)
[2019-04-28] MEDS ORDERED: ATORVASTATIN CA40 M1 PO (14:03)
[2019-04-28] MEDS ORDERED: MONTELUKAST SOD10 MG PO (14:03)
[2019-04-28] MEDS ORDERED: Lantus SC (14:06)
[2019-04-28] MEDS ORDERED: LASIX40 MG PO (14:08)
--- NOTE | 2019-04-28 15:14 | NUR ---
Discharge instructions reviewed with patient/family. Patient receptive and verbalizes understanding. Follow-up care arranged. Written instructions given to patient/family. DHEERAJ POLANCO
== END 2019-04-28 15:14 | disposition home or self-care (01) | DRG 190 ==
LOC: ED 15:47 → EDHOLD 17:32 → 4E 17:32
PROVIDERS: Emergency Medicine; Student in an Organized Health Care Education/Training Program; ADMIT Internal Medicine
DX: I21.4 Non-ST elevation (NSTEMI) myocardial infarction (principal); I50.23 Acute on chronic systolic (congestive) heart failure; E66.01 Morbid (severe) obesity due to excess calories; E44.0 Moderate protein-calorie malnutrition; J44.9 Chronic obstructive pulmonary disease, unspecified; E78.5 Hyperlipidemia, unspecified; I25.10 Atherosclerotic heart disease of native coronary artery without angina pectoris; E83.42 Hypomagnesemia; I11.0 Hypertensive heart disease with heart failure; G47.33 Obstructive sleep apnea (adult) (pediatric); D64.9 Anemia, unspecified; E11.40 Type 2 diabetes mellitus with diabetic neuropathy, unspecified; K21.9 Gastro-esophageal reflux disease without esophagitis; Z79.4 Long term (current) use of insulin; Z88.0 Allergy status to penicillin; Z88.8 Allergy status to other drugs, medicaments and biological substances; Z88.6 Allergy status to analgesic agent; Z91.041 Radiographic dye allergy status; Z95.1 Presence of aortocoronary bypass graft; Z89.021 Acquired absence of right finger(s); Z87.891 Personal history of nicotine dependence; Z80.1 Family history of malignant neoplasm of trachea, bronchus and lung; Z83.3 Family history of diabetes mellitus; Z82.49 Family history of ischemic heart disease and other diseases of the circulatory system; Z86.73 Personal history of transient ischemic attack (TIA), and cerebral infarction without residual deficits; Z79.82 Long term (current) use of aspirin; Z79.899 Other long term (current) drug therapy; Z68.37 Body mass index [BMI] 37.0-37.9, adult

== ENCOUNTER → 2019-08-05 | Outpatient (CLI) | payer OTHER ==
[~2019-08-05] MED LIST changes: +ATORVASTATIN CA40 M1 PO; +CLOPIDOGREL75 MG PO; +HUMALOG100 UNIT/1 SQ; +Humalog SQ; +Lantus SC; +MONTELUKAST SOD10 MG PO
[2019-08-05 13:11] LABS: BASO # 0.1 10*3/uL (0.0-0.1); BASO % 1.4 % (0.0-1.0); EOS # 0.4 10*3/uL (0.0-0.4); EOS % 6.2 % (1.0-4.0); HEMOGLOBIN 12.7 g/dl (14.0-18.0); LYMPH # 1.9 10*3/uL (1.3-4.4); LYMPH % 32.9 % (27.0-41.0); MEAN CELL VOLUME 83.9 fl (80.0-94.0); MEAN CORPUSCULAR HGB 27.3 pg (27.0-31.0); MEAN CORPUSCULAR HGB CONC 32.6 g/dl (33.0-37.0); MEAN PLATELET VOLUME 10.3 fl (9.6-12.3); MONO # 0.4 10*3/uL (0.1-1.0); MONO % 6.7 % (3.0-9.0); NEUT # 3.1 10*3/uL (2.3-7.9); NEUT % 52.1 % (47.0-73.0); PLATELET COUNT AUTOMATED 212 10*3/uL (130-400); RED BLOOD COUNT 4.65 10*6/uL (4.50-5.90); RED CELL DISTRI WIDTH 13.1 % (0-14.5); WHITE BLOOD COUNT 5.8 10*3/uL (4.8-10.8)
[2019-08-05 13:49] LABS: ALBUMIN 3.2 gm/dl (3.1-4.5); ALKALINE PHOSPHATASE 68 U/L (45-117); BUN 26 mg/dl (7-24); CHLORIDE 97 mmol/L (98-107); CHOLESTEROL 217 mg/dL (<200); CREATININE 1.49 mg/dL (0.70-1.30); HDL CHOLESTEROL 27 mg/dl (40-60); POTASSIUM 4.7 mmol/L (3.5-5.1); SGOT/AST 11 IU/L (3-35); SGPT/ALT 19 U/L (12-78); SODIUM 130 mmol/L (136-145); THYROXINE (T4) TOTAL 8.9 ug/dl (4.5-12.1)
[2019-08-05 13:56] LABS: BILIRUBIN, DIRECT < 0.1 mg/dL (0.0-0.2); TOTAL PROTEIN 7.8 gm/dL (6.4-8.2); TRIGLYCERIDES 923 mg/dl (<150)
== END | disposition home or self-care (01) ==
LOC: LAB 12:37
PROVIDERS: Family Medicine
DX: S14.159A Other incomplete lesion at unspecified level of cervical spinal cord, initial encounter (principal); M47.892 Other spondylosis, cervical region; M46.02 Spinal enthesopathy, cervical region; I10 Essential (primary) hypertension; E11.9 Type 2 diabetes mellitus without complications; I25.10 Atherosclerotic heart disease of native coronary artery without angina pectoris; X58.XXXA Exposure to other specified factors, initial encounter; Y93.89 Activity, other specified; Y92.89 Other specified places as the place of occurrence of the external cause; Y99.8 Other external cause status

== ENCOUNTER → 2019-12-25 | Outpatient (CLI) | payer OTHER ==
[2019-12-25 10:57] LABS: ALBUMIN 2.9 gm/dl (3.1-4.5); ALKALINE PHOSPHATASE 86 U/L (45-117); BUN 20 mg/dl (7-24); CHLORIDE 94 mmol/L (98-107); CHOLESTEROL 241 mg/dL (<200); CREATININE 1.44 mg/dL (0.70-1.30); FREE T4 1.24 ng/dl (0.76-1.46); HDL CHOLESTEROL 28 mg/dl (40-60); POTASSIUM 4.7 mmol/L (3.5-5.1); SGOT/AST 3 IU/L (3-35); SGPT/ALT 14 U/L (12-78); SODIUM 129 mmol/L (136-145); TOTAL PROTEIN 7.6 gm/dL (6.4-8.2); TRIGLYCERIDES 861 mg/dl (<150)
[2019-12-26 04:05] LABS: LDL CHOLESTEROL (DIRECT) 110 mg/dL (0-99)
== END | disposition home or self-care (01) ==
LOC: LAB 09:52
PROVIDERS: Internal Medicine Endocrinology, Diabetes & Metabolism
DX: E03.9 Hypothyroidism, unspecified (principal); E55.9 Vitamin D deficiency, unspecified; E11.65 Type 2 diabetes mellitus with hyperglycemia; E78.2 Mixed hyperlipidemia

== ENCOUNTER 2020-01-11 15:51 | Emergency (ER) | payer OTHER ==
[~2020-01-11] VITALS: Ht 165.1 cm; Wt 90.7 kg
[2020-01-11] MEDS ORDERED: TYLENOL W/CODEI1 TA4 PO (18:10)
== END 2020-01-11 18:04 | disposition home or self-care (01) ==
LOC: ED 15:51
DX: S60.212A Contusion of left wrist, initial encounter (principal); I10 Essential (primary) hypertension; K21.9 Gastro-esophageal reflux disease without esophagitis; I25.10 Atherosclerotic heart disease of native coronary artery without angina pectoris; E78.5 Hyperlipidemia, unspecified; J44.9 Chronic obstructive pulmonary disease, unspecified; Z88.8 Allergy status to other drugs, medicaments and biological substances; Z88.0 Allergy status to penicillin; Z79.899 Other long term (current) drug therapy; Z79.82 Long term (current) use of aspirin; X58.XXXA Exposure to other specified factors, initial encounter; Y93.89 Activity, other specified; Y92.89 Other specified places as the place of occurrence of the external cause; Y99.8 Other external cause status

== ENCOUNTER → 2020-03-18 | Outpatient (CLI) | payer OTHER ==
[~2020-03-18] MED LIST changes: +TYLENOL W/CODEI1 TA4 PO
[2020-03-18 13:00] LABS: ALBUMIN 3.2 gm/dl (3.1-4.5); CREATININE 1.47 mg/dL (0.70-1.30); FREE T4 1.12 ng/dl (0.76-1.46); POTASSIUM 4.3 mmol/L (3.5-5.1); TOTAL PROTEIN 8.5 gm/dL (6.4-8.2)
[2020-03-18 13:04] LABS: THYROID STIM HORMONE (HS) 3.02 uIU/ml (0.358-4.75)
[2020-03-19 07:06] LABS: LDL CHOLESTEROL (DIRECT) 99 mg/dL (0-99)
== END | disposition home or self-care (01) ==
LOC: LAB 12:09
PROVIDERS: ATTEND Internal Medicine Endocrinology, Diabetes & Metabolism
DX: E11.65 Type 2 diabetes mellitus with hyperglycemia (principal); E03.9 Hypothyroidism, unspecified; E78.2 Mixed hyperlipidemia; E55.9 Vitamin D deficiency, unspecified

== ENCOUNTER 2020-04-10 19:10 | Inpatient (IN) | payer OTHER ==
[~2020-04-10] VITALS: Ht 172.7 cm; Wt 111.1 kg
[2020-04-10 19:54] VITALS: BP 159/83
[2020-04-10 21:21] LABS: BASO # 0.1 10*3/uL (0.0-0.1); BASO % 0.8 % (0.0-1.0); EOS # 0.3 10*3/uL (0.0-0.4); EOS % 2.6 % (1.0-4.0); HEMATOCRIT 42.1 % (42.0-52.0); LYMPH # 2.1 10*3/uL (1.3-4.4); LYMPH % 22.2 % (27.0-41.0); MEAN CELL VOLUME 83.7 fl (80.0-94.0); MEAN CORPUSCULAR HGB 26.2 pg (27.0-31.0); MEAN CORPUSCULAR HGB CONC 31.4 g/dl (33.0-37.0); MEAN PLATELET VOLUME 10.9 fl (9.6-12.3); MONO # 0.8 10*3/uL (0.1-1.0); MONO % 8.4 % (3.0-9.0); NEUT # 6.3 10*3/uL (2.3-7.9); NEUT % 65.3 % (47.0-73.0); PLATELET COUNT AUTOMATED 257 10*3/uL (130-400); RED BLOOD COUNT 5.03 10*6/uL (4.50-5.90); RED CELL DISTRI WIDTH 14.3 % (0-14.5); WHITE BLOOD COUNT 9.6 10*3/uL (4.8-10.8)
[2020-04-10 21:46] LABS: TROPONIN I 0.154 ng/ml (<0.045)
[2020-04-10 21:55] LABS: ALBUMIN 2.9 gm/dl (3.1-4.5); ALKALINE PHOSPHATASE 76 U/L (45-117); BUN 30 mg/dl (7-24); CHLORIDE 108 mmol/L (98-107); CREATININE 1.01 mg/dL (0.70-1.30); LIPASE 94 U/L (73-393); POTASSIUM 5.6 mmol/L (3.5-5.1); SGOT/AST 38 IU/L (3-35); SGPT/ALT 31 U/L (12-78); SODIUM 135 mmol/L (136-145); TOTAL PROTEIN 7.1 gm/dL (6.4-8.2)
[2020-04-10 22:46] LABS: ACT PARTIAL THROMBO TIME < 20.0 SECONDS (20.0-32.1)
[2020-04-10 22:58] LABS: BILIRUBIN Negative (Negative); BLOOD Negative (Negative); CLARITY Clear (Clear); COLOR Yellow (Yellow); GLUCOSE Trace (Negative); KETONE Negative (Negative); LEUKO ESTERASE Negative (Negative); NITRITE Negative (Negative); UROBILINOGEN 0.2 E.U./dl (0.0-1.0)
[2020-04-10 23:09] LABS: WBC 0-2 wbc/hpf (0-5)
--- NOTE | 2020-04-10 23:56 | NUR ---
[facility] 60[facility] under the services of CARLOTTA Joseph DO with a diagnosis of CHF, DYSPNEA, CHEST PAIN. Chief complaint is SOB. Patient arrived via wheel chair from ER. Monitor applied. Initial assessment completed. Vital signs taken and recorded. CARLOTTA JOSEPH DO notified of admission to the unit. Orders received. See assessment for past medical history, medications and allergies. Patient and/or family oriented to unit. [facility] visitation policy reviewed. Clothing/patient valuable form completed. MARLON LORENZANA
[2020-04-11] VITALS (8 sets, daily range): BP systolic 107–177; BP diastolic 48–102
--- NOTE | 2020-04-11 00:04 | NUR ---
A 60, admitted to [facility], under the services of CARLOTTA Joseph DO with a diagnosis of CHF, DYSPNEA, CHEST PAIN. Chief complaint is SOB, CHEST PAIN. Patient arrived via ambulance from ER. Monitor applied. Initial assessment completed. Vital signs taken and recorded. CARLOTTA JOSEPH DO notified of admission to the unit. Orders received. See assessment for past medical history, medications and allergies. Patient and/or family oriented to unit. [facility] visitation policy reviewed. Clothing/patient valuable form completed. MARLON LORENZANA A
--- NOTE | 2020-04-11 00:06 | NUR ---
REFUSING TO ALLOW STAFF TO REMOVE DRESSING TO LEFT HEEL FOR ADMISSION PICTURES/MEASUREMENTS. STATES HE SEES THE WOUND CARE CLINIC FOR ALL CARE TO IT.
--- NOTE | 2020-04-11 00:32 | NUR ---
CONSULT CALLED TO ANSWERING SERVICE.
[2020-04-11] MEDS ORDERED: LEVOTHYROXINE50 MCG PO (00:34)
[2020-04-11] MEDS ORDERED: VASCEPA1 G1 PO (00:35)
[2020-04-11] MEDS ORDERED: 24 HOUR ALLER15.8 ML INH (00:36)
[2020-04-11] MEDS ORDERED: IBU800 M1 PO (00:40)
[2020-04-11] MEDS ORDERED: ATARAX,VISTARIL50 MG PO (00:41)
[2020-04-11] MEDS ORDERED: MONTELUKAST SOD10 MG PO (00:42)
[2020-04-11] MEDS ORDERED: DOXEPIN HCL10 MG PO (00:43)
--- NOTE | 2020-04-11 00:46 | NUR ---
AWARE MED REC WAS UPDATED, ALSO INFORMED THAT PT HAS A LEFT HEEL WOUND AND REFUSED ASSESSMENT. SAID HE WOULD PUT ORDERS IN AND HAVE WOUND CARE SEE HIM IN THE MORNING.
--- NOTE | 2020-04-11 01:00 | NUR ---
PATIENT TO DECON FOR A SHOWER AT THIS TIME. 1 NURSE AND 1 JAVA DEVELOPER WITH SECURITY CLEARANCE NOTED BUGS ON PATIENT. PATIENT THEN MOVED INTO ROOM 2005 AT THIS TIME.
--- NOTE | 2020-04-11 01:53 | NUR ---
UPDATED PATIENTS BROTHER AT THIS TIME. PATIENT GAVE VERBAL CONSENT TO SPEAK WITH BROTHER AT THIS TIME.
--- NOTE | 2020-04-11 05:40 | NUR ---
PATIENT RESTING IN BED AT THIS TIME. PROVIDED PATIENT WITH PILLOW AND EXTRA BLANKETS PER HIS REQUEST. RESPIRATIONS EASY, NON-LABORED ON ROOM AIR. NO DISTRESS NOTED. PATIENT DENIES ANY FURTHER NEEDS. RN WILL CONTINUE TO MONITOR.
[2020-04-11 06:14] LABS: BASO # 0.1 10*3/uL (0.0-0.1); BASO % 0.6 % (0.0-1.0); EOS # 0.3 10*3/uL (0.0-0.4); HEMATOCRIT 36.8 % (42.0-52.0); LYMPH # 2.3 10*3/uL (1.3-4.4); LYMPH % 26.8 % (27.0-41.0); MEAN CELL VOLUME 84.4 fl (80.0-94.0); MEAN CORPUSCULAR HGB 26.6 pg (27.0-31.0); MEAN CORPUSCULAR HGB CONC 31.5 g/dl (33.0-37.0); MEAN PLATELET VOLUME 10.2 fl (9.6-12.3); MONO # 0.6 10*3/uL (0.1-1.0); MONO % 7.5 % (3.0-9.0); NEUT # 5.1 10*3/uL (2.3-7.9); NEUT % 60.6 % (47.0-73.0); PLATELET COUNT AUTOMATED 277 10*3/uL (130-400); RED BLOOD COUNT 4.36 10*6/uL (4.50-5.90); RED CELL DISTRI WIDTH 14.1 % (0-14.5); WHITE BLOOD COUNT 8.4 10*3/uL (4.8-10.8)
[2020-04-11 06:23] LABS: ACT PARTIAL THROMBO TIME 27.6 SECONDS (20.0-32.1)
[2020-04-11 06:40] LABS: ALBUMIN 2.9 gm/dl (3.1-4.5); BUN 27 mg/dl (7-24); CHLORIDE 106 mmol/L (98-107); SODIUM 141 mmol/L (136-145)
[2020-04-11 06:45] LABS: ALKALINE PHOSPHATASE 74 U/L (45-117); CREATININE 1.03 mg/dL (0.70-1.30); SGOT/AST 20 IU/L (3-35); SGPT/ALT 23 U/L (12-78); TOTAL PROTEIN 7.3 gm/dL (6.4-8.2)
[2020-04-11 06:47] LABS: POTASSIUM 4.4 mmol/L (3.5-5.1)
--- NOTE | 2020-04-11 07:46 | NUR ---
THE RX WAS CALLED FOR THE PATIENTS NEURONTIN AND SYNTHROID
--- NOTE | 2020-04-11 08:30 | NUR ---
THE RECIEVING NURSE WAS GIVEN THE NEURONTON AND SYNTHROID TABLETS.
--- NOTE | 2020-04-11 08:42 | NUR ---
0730 THE PATIENT DID NOT WANT TO TAKE HIS NEURONTIN AND SYNTHROID DUE TO NAUSEA BSG WAS 130, NO COVERAGE WAS GIVEN DUE TO THE PATIENT HAD NOT ORDERED HIS BREAKFAST YET. HE WASNT SURE WHEN HE WOULD
--- NOTE | 2020-04-11 09:58 | NUR ---
Carmella Wei [facility]- notified of wound care consult at this time.
--- NOTE | 2020-04-11 12:34 | NUR ---
Web Marketing Intern in to talk to patient. Patient states lives at HOME with ALONE. There are NO steps in the home. Physician: PARMINDER Pharmacy: [facility] Home health services: NONE Patient's level of ADLs: INDEPENDENT Patient has working utilities: YES DME: MOTORIZED WHEEL CHAIR, C PAP, NEBULIZER Follow-up physician's appointment after d/c: WILL BE MADE BY HOSPITALIST NURSE DIRECTOR Does patient want to access PORTAL?: NO Discharge plan PT LIVES AT HOME ALONE, STATES HIS BROTHERS CHECK IN ON HIM. TALKED WITH PT ABOUT HOME HEALTH AND HE IS AGREEABLE. WHEN GIVEN LIST HE CHOSE [facility]. WILL SEND REFERRAL WHEN ORDER RECEIVED. WILL CONTINUE TO FOLLOW. STATES HE WILL HAVE A RIDE HOME.. JAVIER LEOS
--- NOTE | 2020-04-11 14:59 | NUR ---
REFERRAL FAXED TO [facility].
[2020-04-12] VITALS: BP 138/84
[2020-04-12 06:18] LABS: BASO # 0.1 10*3/uL (0.0-0.1); BASO % 0.9 % (0.0-1.0); EOS # 0.3 10*3/uL (0.0-0.4); EOS % 4.9 % (1.0-4.0); HEMATOCRIT 34.5 % (42.0-52.0); LYMPH # 1.2 10*3/uL (1.3-4.4); LYMPH % 21.2 % (27.0-41.0); MEAN CELL VOLUME 83.7 fl (80.0-94.0); MEAN CORPUSCULAR HGB 26.5 pg (27.0-31.0); MEAN CORPUSCULAR HGB CONC 31.6 g/dl (33.0-37.0); MEAN PLATELET VOLUME 10.1 fl (9.6-12.3); MONO # 0.7 10*3/uL (0.1-1.0); MONO % 11.6 % (3.0-9.0); NEUT # 3.5 10*3/uL (2.3-7.9); NEUT % 60.7 % (47.0-73.0); PLATELET COUNT AUTOMATED 237 10*3/uL (130-400); RED BLOOD COUNT 4.12 10*6/uL (4.50-5.90); WHITE BLOOD COUNT 5.8 10*3/uL (4.8-10.8)
[2020-04-12 06:24] LABS: BUN 30 mg/dl (7-24); CHLORIDE 103 mmol/L (98-107); CREATININE 1.14 mg/dL (0.70-1.30); POTASSIUM 4.3 mmol/L (3.5-5.1); SODIUM 137 mmol/L (136-145)
[2020-04-12 08:00] VITALS: BP 119/70
--- NOTE | 2020-04-12 08:25 | NUR ---
PT RESTING IN BED. TOLERATED ROUTINE IV MEDICATION. PT NPO FOR STRESS TEST. CALL LIGHT IN REACH. SEE SHIFT ASSESSMENT.
--- NOTE | 2020-04-12 10:30 | NUR ---
PT OFF THE FLOOR FOR STRESS TEST
--- NOTE | 2020-04-12 12:40 | NUR ---
INFORMED CONSENT SIGNED FOR LEXISCAN STRESS TEST WITH DR. BRUSH. RESTING EKG, LBBB, HR 80, BP 124/82. PULSE OX 98% AND BREATH SOUNDS DEMINISHED BILATERALLY. COMPLETED ONE MINUTE OF LEXISCAN PROTOCOL RECEIVING LEXISCAN 0.4MG OVER 10 SECONDS. NO ARRHYTHMIAS OR ST CHANGES NOTED. PT C/O ODD FEELING. LAST RECOVERY HR 91, BP 122/64. WAITING NUCLEAR SCANNING IN STABLE CONDITION.
[2020-04-12 16:00] VITALS: BP 101/67
--- NOTE | 2020-04-12 16:18 | NUR ---
PT ASSISTED TO CHAIR AND BACK TO BED. PT INCONTINENT OF STOOL, CLEANED UP, BED CHANGED. BSG-199, SEE EMAR. CALL LIGHT IN REACH. SEE SHIFT ASSESSMENT.
--- NOTE | 2020-04-12 18:00 | NUR ---
PT RESTING IN BED. NO C/O AT THIS TIME. CALL LIGHT IN REACH.
[2020-04-12 20:00] VITALS: BP 135/80
--- NOTE | 2020-04-12 21:21 | NUR ---
STATES THAT HE HAS DIARRHEA; HAVE NOT SEEN ANY DIARRHEA SO FAR THIS SHIFT. PLACED HAT IN BATHROOM FOR PATIENT TO GO IN; VERBALIZED UNDERSTANDING. CALL LIGHT WITHIN REACH.
--- NOTE | 2020-04-12 22:00 | NUR ---
BLOOD SUGAR 156; COVERAGE PER EMAR.
[2020-04-13] VITALS: BP 132/72
--- NOTE | 2020-04-13 04:00 | NUR ---
RESTING IN BED WITH EYES CLOSED; CALL LIGHT WITHIN REACH.
--- NOTE | 2020-04-13 06:15 | NUR ---
BLOOD SUGAR 142; NO COVERAGE REQUIRED.
[2020-04-13 06:19] LABS: BASO # 0.1 10*3/uL (0.0-0.1); BASO % 1.1 % (0.0-1.0); EOS # 0.3 10*3/uL (0.0-0.4); EOS % 5.8 % (1.0-4.0); HEMATOCRIT 34.8 % (42.0-52.0); LYMPH # 1.9 10*3/uL (1.3-4.4); LYMPH % 34.8 % (27.0-41.0); MEAN CELL VOLUME 83.5 fl (80.0-94.0); MEAN CORPUSCULAR HGB 26.1 pg (27.0-31.0); MEAN CORPUSCULAR HGB CONC 31.3 g/dl (33.0-37.0); MEAN PLATELET VOLUME 10.1 fl (9.6-12.3); MONO # 0.7 10*3/uL (0.1-1.0); MONO % 12.3 % (3.0-9.0); NEUT # 2.5 10*3/uL (2.3-7.9); NEUT % 45.4 % (47.0-73.0); PLATELET COUNT AUTOMATED 237 10*3/uL (130-400); RED BLOOD COUNT 4.17 10*6/uL (4.50-5.90); WHITE BLOOD COUNT 5.4 10*3/uL (4.8-10.8)
[2020-04-13 06:36] LABS: BUN 29 mg/dl (7-24); CHLORIDE 102 mmol/L (98-107); CREATININE 1.17 mg/dL (0.70-1.30); POTASSIUM 4.1 mmol/L (3.5-5.1); SODIUM 140 mmol/L (136-145)
[2020-04-13 12:00] VITALS: BP 129/75
[2020-04-13 16:00] VITALS: BP 122/63
[2020-04-13 20:00] VITALS: BP 140/80
[2020-04-14] VITALS: BP 151/84
[2020-04-14 06:46] LABS: BASO # 0.1 10*3/uL (0.0-0.1); BASO % 0.9 % (0.0-1.0); EOS # 0.3 10*3/uL (0.0-0.4); EOS % 4.7 % (1.0-4.0); HEMATOCRIT 37.6 % (42.0-52.0); LYMPH % 30.3 % (27.0-41.0); MEAN CELL VOLUME 81.6 fl (80.0-94.0); MEAN CORPUSCULAR HGB 25.6 pg (27.0-31.0); MEAN CORPUSCULAR HGB CONC 31.4 g/dl (33.0-37.0); MEAN PLATELET VOLUME 10.4 fl (9.6-12.3); MONO # 0.6 10*3/uL (0.1-1.0); NEUT # 3.6 10*3/uL (2.3-7.9); NEUT % 54.5 % (47.0-73.0); PLATELET COUNT AUTOMATED 274 10*3/uL (130-400); RED BLOOD COUNT 4.61 10*6/uL (4.50-5.90); RED CELL DISTRI WIDTH 13.8 % (0-14.5); WHITE BLOOD COUNT 6.6 10*3/uL (4.8-10.8)
[2020-04-14 07:14] LABS: BUN 24 mg/dl (7-24); CHLORIDE 100 mmol/L (98-107); CREATININE 1.04 mg/dL (0.70-1.30); POTASSIUM 3.7 mmol/L (3.5-5.1); SODIUM 137 mmol/L (136-145)
[2020-04-14 08:00] VITALS: BP 121/76
[2020-04-14] MEDS ORDERED: Accuneb 0.1.25 MG/3 INH (11:34)
[2020-04-14] MEDS ORDERED: NORCO 5-325 TA1 EACH PO (11:34)
[2020-04-14] MEDS ORDERED: ALDACTONE25 MG PO (11:34)
[2020-04-14] MEDS ORDERED: LOSARTAN POTASS25 M1 PO (11:34)
[2020-04-14 12:00] VITALS: BP 128/62
--- NOTE | 2020-04-14 13:11 | NUR ---
PT CONTINUES TO STATE HE WILL RETURN HOME WITH [facility] ON DISCHARGE. WILL CONTINUE TO FOLLOW.
--- NOTE | 2020-04-14 15:00 | NUR ---
Discharge instructions reviewed with patient/family. Patient receptive and verbalizes understanding. Follow-up care arranged. Written instructions given to patient/family. CRISTOFER PACHECO
--- NOTE | 2020-04-14 15:19 | NUR ---
FAXED DISCHARGE INFORMATION TO [facility].
== END 2020-04-14 15:05 | disposition home health service (06) | DRG 190 ==
LOC: ED 19:10 → EDHOLD 21:56 → 5E 21:56 → EDHOLD 21:56 → 5E 04-11 06:41
PROVIDERS: Family Medicine; Hospitalist; Internal Medicine; Nurse Practitioner Family; ADMIT Student in an Organized Health Care Education/Training Program; ATTEND Student in an Organized Health Care Education/Training Program
PROC: 0JBR0ZZ Excision of Left Foot Subcutaneous Tissue and Fascia, Open Approach (ICD-10-PCS; 2020-04-11)
PROC: 4A02XM4 Measurement of Cardiac Total Activity, External Approach (ICD-10-PCS; principal; 2020-04-12)
PROC: 3E073KZ Introduction of Other Diagnostic Substance into Coronary Artery, Percutaneous Approach (ICD-10-PCS; 2020-04-12)
DX: I21.4 Non-ST elevation (NSTEMI) myocardial infarction (principal); D64.9 Anemia, unspecified; I11.0 Hypertensive heart disease with heart failure; I50.23 Acute on chronic systolic (congestive) heart failure; E44.0 Moderate protein-calorie malnutrition; L97.422 Non-pressure chronic ulcer of left heel and midfoot with fat layer exposed; K21.9 Gastro-esophageal reflux disease without esophagitis; J44.9 Chronic obstructive pulmonary disease, unspecified; J45.909 Unspecified asthma, uncomplicated; E11.65 Type 2 diabetes mellitus with hyperglycemia; E11.621 Type 2 diabetes mellitus with foot ulcer; E78.2 Mixed hyperlipidemia; I25.110 Atherosclerotic heart disease of native coronary artery with unstable angina pectoris; X58.XXXA Exposure to other specified factors, initial encounter; G47.33 Obstructive sleep apnea (adult) (pediatric); S60.212A Contusion of left wrist, initial encounter; E11.42 Type 2 diabetes mellitus with diabetic polyneuropathy; Z79.4 Long term (current) use of insulin; Z88.0 Allergy status to penicillin; Z91.041 Radiographic dye allergy status; Z88.8 Allergy status to other drugs, medicaments and biological substances; Z95.1 Presence of aortocoronary bypass graft; Z89.021 Acquired absence of right finger(s); Z87.891 Personal history of nicotine dependence; Z80.1 Family history of malignant neoplasm of trachea, bronchus and lung; Y93.89 Activity, other specified; Y92.89 Other specified places as the place of occurrence of the external cause; Y99.8 Other external cause status; Z86.73 Personal history of transient ischemic attack (TIA), and cerebral infarction without residual deficits; E66.01 Morbid (severe) obesity due to excess calories; Z79.82 Long term (current) use of aspirin

== ENCOUNTER → 2020-06-23 | Outpatient (CLI) | payer MEDICAID ==
[~2020-06-23] MED LIST changes: +24 HOUR ALLER15.8 ML INH; +ALDACTONE25 MG PO; +Accuneb 0.1.25 MG/3 INH; +DOXEPIN HCL10 MG PO; +LEVOTHYROXINE50 MCG PO; +LOSARTAN POTASS25 M1 PO; +NORCO 5-325 TA1 EACH PO; +VASCEPA1 G1 PO
== END ==
LOC: WOUNDCARE 00:58
PROVIDERS: ATTEND Nurse Practitioner
DX: E11.622 Type 2 diabetes mellitus with other skin ulcer (principal); L97.422 Non-pressure chronic ulcer of left heel and midfoot with fat layer exposed; E11.65 Type 2 diabetes mellitus with hyperglycemia; A49.1 Streptococcal infection, unspecified site; I25.10 Atherosclerotic heart disease of native coronary artery without angina pectoris; K21.9 Gastro-esophageal reflux disease without esophagitis; G47.00 Insomnia, unspecified

== ENCOUNTER → 2020-06-30 | Outpatient (CLI) | payer MEDICAID | END | disposition home or self-care (01) | LOC: WOUNDCARE 01:53 | PROVIDERS: ATTEND Nurse Practitioner | DX: E11.622 Type 2 diabetes mellitus with other skin ulcer (principal); L97.422 Non-pressure chronic ulcer of left heel and midfoot with fat layer exposed; E11.65 Type 2 diabetes mellitus with hyperglycemia; I10 Essential (primary) hypertension; A49.1 Streptococcal infection, unspecified site; I25.10 Atherosclerotic heart disease of native coronary artery without angina pectoris; K21.9 Gastro-esophageal reflux disease without esophagitis; G47.00 Insomnia, unspecified ==

== ENCOUNTER → 2020-07-04 | Outpatient (CLI) | payer MEDICAID | END | disposition home or self-care (01) | LOC: WOUNDCARE 07-01 09:59 | PROVIDERS: ATTEND Nurse Practitioner | DX: E11.621 Type 2 diabetes mellitus with foot ulcer (principal); L97.422 Non-pressure chronic ulcer of left heel and midfoot with fat layer exposed; E11.65 Type 2 diabetes mellitus with hyperglycemia; I10 Essential (primary) hypertension; A49.1 Streptococcal infection, unspecified site; I25.10 Atherosclerotic heart disease of native coronary artery without angina pectoris; K21.9 Gastro-esophageal reflux disease without esophagitis; G47.00 Insomnia, unspecified ==

== ENCOUNTER 2020-07-05 06:17 | Emergency (ER) | payer MEDICAID ==
[~2020-07-05] VITALS: Ht 165.1 cm; Wt 90.7 kg
== END 2020-07-05 06:37 | disposition home or self-care (01) ==
LOC: ED 06:17
DX: R23.8 Other skin changes (principal); R20.8 Other disturbances of skin sensation; Z88.0 Allergy status to penicillin; Z88.8 Allergy status to other drugs, medicaments and biological substances; Z87.891 Personal history of nicotine dependence; T50.995A Adverse effect of other drugs, medicaments and biological substances, initial encounter; Y92.89 Other specified places as the place of occurrence of the external cause

== ENCOUNTER → 2020-07-11 | Outpatient (CLI) | payer MEDICAID | END | disposition home or self-care (01) | LOC: WOUNDCARE 00:41 | PROVIDERS: ATTEND Nurse Practitioner | DX: E11.622 Type 2 diabetes mellitus with other skin ulcer (principal); L97.522 Non-pressure chronic ulcer of other part of left foot with fat layer exposed; L97.422 Non-pressure chronic ulcer of left heel and midfoot with fat layer exposed; E11.628 Type 2 diabetes mellitus with other skin complications; E11.65 Type 2 diabetes mellitus with hyperglycemia; I10 Essential (primary) hypertension; A49.1 Streptococcal infection, unspecified site; I25.10 Atherosclerotic heart disease of native coronary artery without angina pectoris; K21.9 Gastro-esophageal reflux disease without esophagitis; G47.00 Insomnia, unspecified ==

== ENCOUNTER → 2020-07-18 | Outpatient (CLI) | payer MEDICAID | END | disposition home or self-care (01) | LOC: WOUNDCARE 02:01 | PROVIDERS: ATTEND Nurse Practitioner | DX: E11.621 Type 2 diabetes mellitus with foot ulcer (principal); L97.422 Non-pressure chronic ulcer of left heel and midfoot with fat layer exposed; L97.521 Non-pressure chronic ulcer of other part of left foot limited to breakdown of skin; E11.628 Type 2 diabetes mellitus with other skin complications; E11.65 Type 2 diabetes mellitus with hyperglycemia; A49.1 Streptococcal infection, unspecified site; I10 Essential (primary) hypertension; I25.10 Atherosclerotic heart disease of native coronary artery without angina pectoris; K21.9 Gastro-esophageal reflux disease without esophagitis; G47.00 Insomnia, unspecified ==

== ENCOUNTER → 2020-07-25 | Outpatient (CLI) | payer MEDICAID ==
[2020-07-25 16:01] LABS: ALBUMIN 3.1 gm/dl (3.1-4.5); ALKALINE PHOSPHATASE 70 U/L (45-117); BUN 19 mg/dl (7-24); CHLORIDE 103 mmol/L (98-107); CHOLESTEROL 244 mg/dL (<200); FREE T4 1.09 ng/dl (0.76-1.46); HDL CHOLESTEROL 35 mg/dl (40-60); POTASSIUM 5.7 mmol/L (3.5-5.1); SGOT/AST 12 IU/L (3-35); SGPT/ALT 16 U/L (12-78); SODIUM 134 mmol/L (136-145); TOTAL PROTEIN 7.8 gm/dL (6.4-8.2); TRIGLYCERIDES 458 mg/dl (<150)
[2020-07-26 08:07] LABS: LDL CHOLESTEROL (DIRECT) 150 mg/dL (0-99)
== END | disposition home or self-care (01) ==
LOC: WOUNDCARE 01:07 → LAB 01:07 → WOUNDCARE 14:01
PROVIDERS: Physician Assistant; ATTEND Nurse Practitioner
DX: I70.203 Unspecified atherosclerosis of native arteries of extremities, bilateral legs (principal); L97.422 Non-pressure chronic ulcer of left heel and midfoot with fat layer exposed; E11.621 Type 2 diabetes mellitus with foot ulcer; A49.1 Streptococcal infection, unspecified site; E11.628 Type 2 diabetes mellitus with other skin complications; E11.65 Type 2 diabetes mellitus with hyperglycemia; E03.9 Hypothyroidism, unspecified; E78.2 Mixed hyperlipidemia; E55.9 Vitamin D deficiency, unspecified

== ENCOUNTER → 2020-08-08 | Outpatient (CLI) | payer MEDICAID | LOC: WOUNDCARE 00:56 | PROVIDERS: ATTEND Nurse Practitioner | DX: E11.621 Type 2 diabetes mellitus with foot ulcer (principal); L97.521 Non-pressure chronic ulcer of other part of left foot limited to breakdown of skin; L97.422 Non-pressure chronic ulcer of left heel and midfoot with fat layer exposed; E11.65 Type 2 diabetes mellitus with hyperglycemia; A49.1 Streptococcal infection, unspecified site; I10 Essential (primary) hypertension; I25.10 Atherosclerotic heart disease of native coronary artery without angina pectoris; K21.9 Gastro-esophageal reflux disease without esophagitis; G47.30 Sleep apnea, unspecified ==

== ENCOUNTER → 2020-08-15 | Outpatient (CLI) | payer MEDICAID | LOC: WOUNDCARE 00:30 | PROVIDERS: ATTEND Nurse Practitioner | DX: E11.621 Type 2 diabetes mellitus with foot ulcer (principal); L97.521 Non-pressure chronic ulcer of other part of left foot limited to breakdown of skin; L97.422 Non-pressure chronic ulcer of left heel and midfoot with fat layer exposed; E11.65 Type 2 diabetes mellitus with hyperglycemia; A49.1 Streptococcal infection, unspecified site; I10 Essential (primary) hypertension; I25.10 Atherosclerotic heart disease of native coronary artery without angina pectoris; K21.9 Gastro-esophageal reflux disease without esophagitis; G47.30 Sleep apnea, unspecified ==

== ENCOUNTER → 2020-08-22 | Outpatient (CLI) | payer MEDICAID | LOC: WOUNDCARE 01:50 | PROVIDERS: ATTEND Nurse Practitioner | DX: E11.621 Type 2 diabetes mellitus with foot ulcer (principal); L97.521 Non-pressure chronic ulcer of other part of left foot limited to breakdown of skin; L97.422 Non-pressure chronic ulcer of left heel and midfoot with fat layer exposed; E11.628 Type 2 diabetes mellitus with other skin complications; E11.65 Type 2 diabetes mellitus with hyperglycemia; A49.1 Streptococcal infection, unspecified site; I10 Essential (primary) hypertension; I25.10 Atherosclerotic heart disease of native coronary artery without angina pectoris; K21.9 Gastro-esophageal reflux disease without esophagitis; G47.30 Sleep apnea, unspecified ==

== ENCOUNTER → 2020-08-29 | Outpatient (CLI) | payer MEDICAID | LOC: WOUNDCARE 00:38 | PROVIDERS: ATTEND Nurse Practitioner | DX: E11.621 Type 2 diabetes mellitus with foot ulcer (principal); L97.522 Non-pressure chronic ulcer of other part of left foot with fat layer exposed; L97.422 Non-pressure chronic ulcer of left heel and midfoot with fat layer exposed; E11.628 Type 2 diabetes mellitus with other skin complications; E11.65 Type 2 diabetes mellitus with hyperglycemia; A49.1 Streptococcal infection, unspecified site; I10 Essential (primary) hypertension; I25.10 Atherosclerotic heart disease of native coronary artery without angina pectoris; K21.9 Gastro-esophageal reflux disease without esophagitis; G47.30 Sleep apnea, unspecified ==

== ENCOUNTER → 2020-09-05 | Outpatient (CLI) | payer MEDICAID | LOC: WOUNDCARE 00:50 | PROVIDERS: ATTEND Nurse Practitioner | DX: E11.621 Type 2 diabetes mellitus with foot ulcer (principal); L97.522 Non-pressure chronic ulcer of other part of left foot with fat layer exposed; L97.422 Non-pressure chronic ulcer of left heel and midfoot with fat layer exposed; E11.628 Type 2 diabetes mellitus with other skin complications; E11.65 Type 2 diabetes mellitus with hyperglycemia; A49.1 Streptococcal infection, unspecified site; I10 Essential (primary) hypertension; I25.10 Atherosclerotic heart disease of native coronary artery without angina pectoris; K21.9 Gastro-esophageal reflux disease without esophagitis; G47.30 Sleep apnea, unspecified ==

== ENCOUNTER → 2020-09-19 | Outpatient (CLI) | payer MEDICAID | LOC: WOUNDCARE 02:56 | PROVIDERS: ATTEND Nurse Practitioner | DX: E11.621 Type 2 diabetes mellitus with foot ulcer (principal); L97.521 Non-pressure chronic ulcer of other part of left foot limited to breakdown of skin; L97.422 Non-pressure chronic ulcer of left heel and midfoot with fat layer exposed; E11.628 Type 2 diabetes mellitus with other skin complications; E11.65 Type 2 diabetes mellitus with hyperglycemia; A49.1 Streptococcal infection, unspecified site; I10 Essential (primary) hypertension; I25.10 Atherosclerotic heart disease of native coronary artery without angina pectoris; K21.9 Gastro-esophageal reflux disease without esophagitis; G47.30 Sleep apnea, unspecified ==

== ENCOUNTER → 2020-09-26 | Outpatient (CLI) | payer MEDICAID | LOC: WOUNDCARE 01:07 | PROVIDERS: ATTEND Nurse Practitioner | DX: E11.621 Type 2 diabetes mellitus with foot ulcer (principal); L97.528 Non-pressure chronic ulcer of other part of left foot with other specified severity; L97.422 Non-pressure chronic ulcer of left heel and midfoot with fat layer exposed; E11.628 Type 2 diabetes mellitus with other skin complications; E11.65 Type 2 diabetes mellitus with hyperglycemia; A49.1 Streptococcal infection, unspecified site; I10 Essential (primary) hypertension; I25.10 Atherosclerotic heart disease of native coronary artery without angina pectoris; K21.9 Gastro-esophageal reflux disease without esophagitis; G47.30 Sleep apnea, unspecified ==

== ENCOUNTER → 2020-10-31 | Outpatient (CLI) | payer MEDICAID ==
[2020-10-31 15:51] LABS: ALKALINE PHOSPHATASE 72 U/L (45-117); BUN 24 mg/dl (7-24); CHLORIDE 103 mmol/L (98-107); CHOLESTEROL 181 mg/dL (<200); LDL CHOLESTEROL 92 mg/dL (9-159); POTASSIUM 5.4 mmol/L (3.5-5.1); SGOT/AST 4 IU/L (3-35); SGPT/ALT 16 U/L (12-78); SODIUM 134 mmol/L (136-145); TOTAL PROTEIN 7.5 gm/dL (6.4-8.2); TRIGLYCERIDES 279 mg/dl (<150)
[2020-10-31 15:52] LABS: FREE T4 1.21 ng/dl (0.76-1.46)
== END | disposition home or self-care (01) ==
LOC: LAB 14:38
PROVIDERS: ATTEND Internal Medicine Endocrinology, Diabetes & Metabolism
DX: E11.65 Type 2 diabetes mellitus with hyperglycemia (principal); E78.2 Mixed hyperlipidemia; E03.9 Hypothyroidism, unspecified

== ENCOUNTER → 2020-11-04 | Outpatient (CLI) | payer MEDICAID | LOC: WOUNDCARE 10:46 | PROVIDERS: ATTEND Nurse Practitioner | DX: E11.621 Type 2 diabetes mellitus with foot ulcer (principal); L97.522 Non-pressure chronic ulcer of other part of left foot with fat layer exposed; E11.628 Type 2 diabetes mellitus with other skin complications; E11.65 Type 2 diabetes mellitus with hyperglycemia; A49.1 Streptococcal infection, unspecified site; I10 Essential (primary) hypertension; I25.10 Atherosclerotic heart disease of native coronary artery without angina pectoris; K21.9 Gastro-esophageal reflux disease without esophagitis; G47.30 Sleep apnea, unspecified ==

== ENCOUNTER → 2020-11-17 | Outpatient (CLI) | payer MEDICAID | LOC: WOUNDCARE 02:10 | PROVIDERS: ATTEND Nurse Practitioner | DX: E11.621 Type 2 diabetes mellitus with foot ulcer (principal); L97.528 Non-pressure chronic ulcer of other part of left foot with other specified severity; E11.628 Type 2 diabetes mellitus with other skin complications; E11.65 Type 2 diabetes mellitus with hyperglycemia; A49.1 Streptococcal infection, unspecified site; I10 Essential (primary) hypertension; I25.10 Atherosclerotic heart disease of native coronary artery without angina pectoris; K21.9 Gastro-esophageal reflux disease without esophagitis; G47.30 Sleep apnea, unspecified ==

== ENCOUNTER 2020-12-05 14:46 | Emergency (ER) | payer MEDICAID ==
[~2020-12-05] VITALS: Wt 103.4 kg
== END 2020-12-05 18:15 | disposition home or self-care (01) ==
LOC: ED 14:46
DX: R07.81 Pleurodynia (principal); Z88.8 Allergy status to other drugs, medicaments and biological substances; Z88.0 Allergy status to penicillin; Z91.041 Radiographic dye allergy status; Z79.899 Other long term (current) drug therapy; Z79.4 Long term (current) use of insulin; Z79.82 Long term (current) use of aspirin; Z98.890 Other specified postprocedural states; Z95.1 Presence of aortocoronary bypass graft; Z87.891 Personal history of nicotine dependence; W19.XXXA Unspecified fall, initial encounter; Y93.89 Activity, other specified; Y92.89 Other specified places as the place of occurrence of the external cause; Y99.8 Other external cause status

== ENCOUNTER → 2021-02-06 | Outpatient (CLI) | payer OTHER ==
[2021-02-06 16:25] LABS: ALBUMIN 3.5 gm/dl (3.1-4.5); BUN 44 mg/dl (7-24); CHLORIDE 97 mmol/L (98-107); CHOLESTEROL 267 mg/dL (<200); CREATININE 1.25 mg/dL (0.70-1.30); POTASSIUM 4.1 mmol/L (3.5-5.1); SGOT/AST 16 IU/L (3-35); SGPT/ALT 18 U/L (12-78); SODIUM 129 mmol/L (136-145)
[2021-02-06 16:33] LABS: ALKALINE PHOSPHATASE 70 U/L (45-117); FREE T4 1.11 ng/dl (0.76-1.46); TRIGLYCERIDES 1060 mg/dl (<150)
[2021-02-07 08:08] LABS: LDL CHOLESTEROL (DIRECT) 84 mg/dL (0-99)
== END | disposition home or self-care (01) ==
LOC: LAB 14:48
PROVIDERS: ATTEND Internal Medicine Endocrinology, Diabetes & Metabolism
DX: E55.9 Vitamin D deficiency, unspecified (principal); E11.65 Type 2 diabetes mellitus with hyperglycemia; E03.9 Hypothyroidism, unspecified; E78.2 Mixed hyperlipidemia

== ENCOUNTER → 2021-02-24 | Outpatient (CLI) | payer OTHER | END | disposition home or self-care (01) | LOC: MRI 00:24 | PROVIDERS: ATTEND Student in an Organized Health Care Education/Training Program | DX: M47.812 Spondylosis without myelopathy or radiculopathy, cervical region (principal); M48.02 Spinal stenosis, cervical region; M25.78 Osteophyte, vertebrae; M47.816 Spondylosis without myelopathy or radiculopathy, lumbar region; Z72.3 Lack of physical exercise; G89.29 Other chronic pain ==

== ENCOUNTER 2021-05-31 17:08 | Emergency (ER) | payer MEDICAID ==
[2021-05-31 23:16] LABS: BASO % 0.7 % (0.0-1.0); EOS # 0.1 10*3/uL (0.0-0.4); EOS % 2.4 % (1.0-4.0); HEMATOCRIT 40.1 % (42.0-52.0); LYMPH # 1.1 10*3/uL (1.3-4.4); LYMPH % 18.4 % (27.0-41.0); MEAN CELL VOLUME 85.7 fl (80.0-94.0); MEAN CORPUSCULAR HGB 28.6 pg (27.0-31.0); MEAN CORPUSCULAR HGB CONC 33.4 g/dl (33.0-37.0); MEAN PLATELET VOLUME 10.6 fl (9.6-12.3); MONO # 0.6 10*3/uL (0.1-1.0); MONO % 9.9 % (3.0-9.0); NEUT % 68.1 % (47.0-73.0); PLATELET COUNT AUTOMATED 163 10*3/uL (130-400); RED BLOOD COUNT 4.68 10*6/uL (4.50-5.90); RED CELL DISTRI WIDTH 13.2 % (0-14.5); WHITE BLOOD COUNT 5.9 10*3/uL (4.8-10.8)
[2021-05-31 23:31] LABS: ALBUMIN 3.1 gm/dl (3.1-4.5); ALKALINE PHOSPHATASE 71 U/L (45-117); BUN 25 mg/dl (7-24); CHLORIDE 97 mmol/L (98-107); CREATININE 1.19 mg/dL (0.70-1.30); POTASSIUM 5.1 mmol/L (3.5-5.1); SGOT/AST 15 IU/L (3-35); SGPT/ALT 17 U/L (12-78); SODIUM 128 mmol/L (136-145); TOTAL PROTEIN 7.5 gm/dL (6.4-8.2)
== END 2021-06-01 10:45 | disposition home or self-care (01) ==
LOC: ED 17:08
PROVIDERS: Emergency Medicine
DX: U07.1 COVID-19 (principal); I25.10 Atherosclerotic heart disease of native coronary artery without angina pectoris; J44.9 Chronic obstructive pulmonary disease, unspecified; E78.5 Hyperlipidemia, unspecified; K21.9 Gastro-esophageal reflux disease without esophagitis; I11.0 Hypertensive heart disease with heart failure; I50.9 Heart failure, unspecified; E66.9 Obesity, unspecified; Z88.0 Allergy status to penicillin; Z88.8 Allergy status to other drugs, medicaments and biological substances; Z79.899 Other long term (current) drug therapy; Z79.82 Long term (current) use of aspirin; F17.200 Nicotine dependence, unspecified, uncomplicated

== ENCOUNTER → 2021-09-14 | Outpatient (CLI) | payer MEDICAID | END | disposition home or self-care (01) | LOC: LAB 08:00 | PROVIDERS: ATTEND Family Medicine | DX: E11.9 Type 2 diabetes mellitus without complications (principal); R19.7 Diarrhea, unspecified ==

== ENCOUNTER → 2021-09-15 | Outpatient (CLI) | payer MEDICAID ==
[2021-09-15 13:57] LABS: BASO # 0.1 10*3/uL (0.0-0.1); BASO % 1.3 % (0.0-1.0); EOS # 0.4 10*3/uL (0.0-0.4); EOS % 6.3 % (1.0-4.0); HEMATOCRIT 41.8 % (42.0-52.0); LYMPH # 2.7 10*3/uL (1.3-4.4); LYMPH % 38.8 % (27.0-41.0); MEAN CELL VOLUME 87.4 fl (80.0-94.0); MEAN CORPUSCULAR HGB 28.2 pg (27.0-31.0); MEAN CORPUSCULAR HGB CONC 32.3 g/dl (33.0-37.0); MEAN PLATELET VOLUME 10.5 fl (9.6-12.3); MONO # 0.5 10*3/uL (0.1-1.0); MONO % 6.7 % (3.0-9.0); NEUT # 3.1 10*3/uL (2.3-7.9); NEUT % 45.2 % (47.0-73.0); PLATELET COUNT AUTOMATED 257 10*3/uL (130-400); RED BLOOD COUNT 4.78 10*6/uL (4.50-5.90); RED CELL DISTRI WIDTH 13.2 % (0-14.5); WHITE BLOOD COUNT 6.9 10*3/uL (4.8-10.8)
[2021-09-15 14:13] LABS: ALKALINE PHOSPHATASE 74 U/L (45-117); BUN 19 mg/dl (7-24); CHLORIDE 105 mmol/L (98-107); CREATININE 1.06 mg/dL (0.70-1.30); POTASSIUM 4.6 mmol/L (3.5-5.1); SGOT/AST 16 IU/L (3-35); SGPT/ALT 16 U/L (12-78); SODIUM 136 mmol/L (136-145); TOTAL PROTEIN 7.2 gm/dL (6.4-8.2)
== END | disposition home or self-care (01) ==
LOC: LAB 13:03
PROVIDERS: ATTEND Family Medicine
DX: E11.9 Type 2 diabetes mellitus without complications (principal); R19.7 Diarrhea, unspecified

== ENCOUNTER 2021-10-17 17:35 | Emergency (ER) | payer MEDICAID ==
[~2021-10-17] VITALS: Ht 165.1 cm; Wt 86.2 kg
[2021-10-17 19:32] LABS: BASO # 0.1 10*3/uL (0.0-0.1); EOS # 0.3 10*3/uL (0.0-0.4); EOS % 5.2 % (1.0-4.0); HEMATOCRIT 41.2 % (42.0-52.0); LYMPH # 1.8 10*3/uL (1.3-4.4); LYMPH % 31.3 % (27.0-41.0); MEAN CELL VOLUME 86.4 fl (80.0-94.0); MEAN CORPUSCULAR HGB 27.9 pg (27.0-31.0); MEAN CORPUSCULAR HGB CONC 32.3 g/dl (33.0-37.0); MEAN PLATELET VOLUME 10.5 fl (9.6-12.3); MONO # 0.4 10*3/uL (0.1-1.0); MONO % 7.2 % (3.0-9.0); NEUT # 3.2 10*3/uL (2.3-7.9); NEUT % 55.1 % (47.0-73.0); PLATELET COUNT AUTOMATED 210 10*3/uL (130-400); RED BLOOD COUNT 4.77 10*6/uL (4.50-5.90); RED CELL DISTRI WIDTH 13.2 % (0-14.5); WHITE BLOOD COUNT 5.8 10*3/uL (4.8-10.8)
[2021-10-17 19:54] LABS: ALKALINE PHOSPHATASE 61 U/L (45-117); BUN 18 mg/dl (7-24); CHLORIDE 101 mmol/L (98-107); CREATININE 1.11 mg/dL (0.70-1.30); POTASSIUM 3.5 mmol/L (3.5-5.1); SGOT/AST 13 IU/L (3-35); SGPT/ALT 16 U/L (12-78); SODIUM 138 mmol/L (136-145); TOTAL PROTEIN 7.3 gm/dL (6.4-8.2)
== END 2021-10-18 00:58 | disposition home or self-care (01) ==
LOC: ED 17:35
PROVIDERS: Student in an Organized Health Care Education/Training Program
DX: T75.89XA Other specified effects of external causes, initial encounter (principal); Z88.0 Allergy status to penicillin; Z88.8 Allergy status to other drugs, medicaments and biological substances; Z79.899 Other long term (current) drug therapy; Z79.82 Long term (current) use of aspirin; Z87.891 Personal history of nicotine dependence; Z98.890 Other specified postprocedural states; X08.8XXA Exposure to other specified smoke, fire and flames, initial encounter; Y93.89 Activity, other specified; Y92.89 Other specified places as the place of occurrence of the external cause; Y99.8 Other external cause status

== ENCOUNTER 2021-10-28 19:34 | Inpatient (IN) | payer MEDICAID ==
[~2021-10-28] VITALS: Ht 165.1 cm; Wt 97.2 kg
[2021-10-28 19:39] VITALS: BP 147/85
[2021-10-28 20:16] LABS: BASO # 0.1 10*3/uL (0.0-0.1); BASO % 0.8 % (0.0-1.0); EOS # 0.3 10*3/uL (0.0-0.4); EOS % 5.2 % (1.0-4.0); HEMATOCRIT 39.9 % (42.0-52.0); LYMPH # 1.8 10*3/uL (1.3-4.4); LYMPH % 29.9 % (27.0-41.0); MEAN CELL VOLUME 86.9 fl (80.0-94.0); MEAN CORPUSCULAR HGB 27.7 pg (27.0-31.0); MEAN CORPUSCULAR HGB CONC 31.8 g/dl (33.0-37.0); MEAN PLATELET VOLUME 10.4 fl (9.6-12.3); MONO # 0.6 10*3/uL (0.1-1.0); MONO % 9.5 % (3.0-9.0); NEUT # 3.3 10*3/uL (2.3-7.9); NEUT % 54.3 % (47.0-73.0); PLATELET COUNT AUTOMATED 192 10*3/uL (130-400); RED BLOOD COUNT 4.59 10*6/uL (4.50-5.90); RED CELL DISTRI WIDTH 13.2 % (0-14.5)
[2021-10-28 20:25] LABS: INTERNATIONAL NORM RATIO 1.1 (2.0-3.5)
[2021-10-28 20:32] LABS: ALKALINE PHOSPHATASE 49 U/L (45-117); BUN 20 mg/dl (7-24); CHLORIDE 104 mmol/L (98-107); CREATININE 1.14 mg/dL (0.70-1.30); POTASSIUM 3.9 mmol/L (3.5-5.1); SGOT/AST 22 IU/L (3-35); SGPT/ALT 21 U/L (12-78); SODIUM 139 mmol/L (136-145); TOTAL PROTEIN 7.3 gm/dL (6.4-8.2)
[2021-10-29 00:45] VITALS: BP 139/94
[2021-10-29 02:13] LABS: BASO # 0.1 10*3/uL (0.0-0.1); BASO % 0.9 % (0.0-1.0); EOS # 0.4 10*3/uL (0.0-0.4); EOS % 5.9 % (1.0-4.0); HEMATOCRIT 40.2 % (42.0-52.0); LYMPH # 1.9 10*3/uL (1.3-4.4); MEAN CELL VOLUME 85.7 fl (80.0-94.0); MEAN CORPUSCULAR HGB 27.9 pg (27.0-31.0); MEAN CORPUSCULAR HGB CONC 32.6 g/dl (33.0-37.0); MEAN PLATELET VOLUME 10.5 fl (9.6-12.3); MONO # 0.5 10*3/uL (0.1-1.0); MONO % 8.2 % (3.0-9.0); NEUT # 3.7 10*3/uL (2.3-7.9); NEUT % 56.5 % (47.0-73.0); PLATELET COUNT AUTOMATED 206 10*3/uL (130-400); RED BLOOD COUNT 4.69 10*6/uL (4.50-5.90); RED CELL DISTRI WIDTH 13.2 % (0-14.5); WHITE BLOOD COUNT 6.6 10*3/uL (4.8-10.8)
[2021-10-29 02:28] LABS: ALKALINE PHOSPHATASE 50 U/L (45-117); BUN 18 mg/dl (7-24); CHLORIDE 106 mmol/L (98-107); CREATININE 1.01 mg/dL (0.70-1.30); POTASSIUM 3.4 mmol/L (3.5-5.1); SGOT/AST 22 IU/L (3-35); SGPT/ALT 23 U/L (12-78); SODIUM 140 mmol/L (136-145); TOTAL PROTEIN 7.3 gm/dL (6.4-8.2)
[2021-10-29 02:30] LABS: FREE T4 1.26 ng/dl (0.76-1.46)
[2021-10-29 08:00] VITALS: BP 131/67
[2021-10-29 12:00] VITALS: BP 124/65
[2021-10-29 16:00] VITALS: BP 114/64
[2021-10-29 20:00] VITALS: BP 118/59
[2021-10-30] VITALS: BP 124/51
[2021-10-30 06:53] LABS: BASO # 0.1 10*3/uL (0.0-0.1); EOS # 0.2 10*3/uL (0.0-0.4); EOS % 3.7 % (1.0-4.0); HEMATOCRIT 36.4 % (42.0-52.0); LYMPH # 0.8 10*3/uL (1.3-4.4); LYMPH % 14.7 % (27.0-41.0); MEAN CELL VOLUME 86.1 fl (80.0-94.0); MEAN CORPUSCULAR HGB 27.7 pg (27.0-31.0); MEAN CORPUSCULAR HGB CONC 32.1 g/dl (33.0-37.0); MEAN PLATELET VOLUME 10.4 fl (9.6-12.3); MONO # 0.4 10*3/uL (0.1-1.0); MONO % 8.3 % (3.0-9.0); NEUT # 3.7 10*3/uL (2.3-7.9); NEUT % 71.9 % (47.0-73.0); PLATELET COUNT AUTOMATED 158 10*3/uL (130-400); RED BLOOD COUNT 4.23 10*6/uL (4.50-5.90); RED CELL DISTRI WIDTH 13.3 % (0-14.5); WHITE BLOOD COUNT 5.2 10*3/uL (4.8-10.8)
[2021-10-30 07:06] LABS: BUN 19 mg/dl (7-24); CHLORIDE 103 mmol/L (98-107); CREATININE 1.16 mg/dL (0.70-1.30); SODIUM 137 mmol/L (136-145)
[2021-10-30 08:00] VITALS: BP 127/69
[2021-10-30 12:00] VITALS: BP 119/70
[2021-10-30 16:00] VITALS: BP 124/56
[2021-10-30 20:00] VITALS: BP 129/78
[2021-10-31] VITALS: BP 112/59
[2021-10-31 06:55] LABS: BASO # 0.1 10*3/uL (0.0-0.1); EOS # 0.3 10*3/uL (0.0-0.4); EOS % 5.2 % (1.0-4.0); HEMATOCRIT 38.2 % (42.0-52.0); LYMPH # 1.1 10*3/uL (1.3-4.4); LYMPH % 19.8 % (27.0-41.0); MEAN CORPUSCULAR HGB 27.6 pg (27.0-31.0); MEAN CORPUSCULAR HGB CONC 31.4 g/dl (33.0-37.0); MONO # 0.5 10*3/uL (0.1-1.0); NEUT # 3.8 10*3/uL (2.3-7.9); NEUT % 65.7 % (47.0-73.0); PLATELET COUNT AUTOMATED 178 10*3/uL (130-400); RED BLOOD COUNT 4.34 10*6/uL (4.50-5.90); RED CELL DISTRI WIDTH 13.2 % (0-14.5); WHITE BLOOD COUNT 5.8 10*3/uL (4.8-10.8)
[2021-10-31 07:03] LABS: BUN 21 mg/dl (7-24); CHLORIDE 102 mmol/L (98-107); SODIUM 135 mmol/L (136-145)
[2021-10-31 07:05] LABS: CREATININE 1.12 mg/dL (0.70-1.30)
[2021-10-31 08:00] VITALS: BP 112/61
[2021-10-31 12:00] VITALS: BP 102/54
[2021-10-31] MEDS ORDERED: LOSARTAN POTASS25 M1 PO (15:11)
[2021-10-31] MEDS ORDERED: IMDUR SA30 MG PO (15:11)
[2021-10-31 16:00] VITALS: BP 104/55
[2021-10-31 20:00] VITALS: BP 122/55
[2021-11-01] VITALS: BP 134/92
[2021-11-01 06:17] LABS: BASO % 0.8 % (0.0-1.0); EOS # 0.3 10*3/uL (0.0-0.4); EOS % 5.4 % (1.0-4.0); HEMATOCRIT 37.3 % (42.0-52.0); LYMPH # 1.2 10*3/uL (1.3-4.4); LYMPH % 24.1 % (27.0-41.0); MEAN CELL VOLUME 88.2 fl (80.0-94.0); MEAN CORPUSCULAR HGB 27.9 pg (27.0-31.0); MEAN CORPUSCULAR HGB CONC 31.6 g/dl (33.0-37.0); MEAN PLATELET VOLUME 11.3 fl (9.6-12.3); MONO # 0.5 10*3/uL (0.1-1.0); MONO % 9.5 % (3.0-9.0); NEUT # 3.1 10*3/uL (2.3-7.9); NEUT % 59.8 % (47.0-73.0); PLATELET COUNT AUTOMATED 171 10*3/uL (130-400); RED BLOOD COUNT 4.23 10*6/uL (4.50-5.90); RED CELL DISTRI WIDTH 13.1 % (0-14.5); WHITE BLOOD COUNT 5.2 10*3/uL (4.8-10.8)
[2021-11-01 06:21] LABS: CHLORIDE 101 mmol/L (98-107); SODIUM 134 mmol/L (136-145)
[2021-11-01 06:29] LABS: BUN 24 mg/dl (7-24); CREATININE 1.18 mg/dL (0.70-1.30)
[2021-11-01 08:00] VITALS: BP 127/74
[2021-11-01 12:00] VITALS: BP 111/53
[2021-11-01 16:00] VITALS: BP 124/76
[2021-11-01 20:00] VITALS: BP 108/67
[2021-11-02] VITALS: BP 131/59
[2021-11-02 08:00] VITALS: BP 131/71
[2021-11-02 10:58] VITALS: BP 124/68
== END 2021-11-02 15:50 | disposition home or self-care (01) | DRG 194 ==
LOC: ED 19:34 → 5E 23:08 → EDHOLD 23:08 → 5E 10-29 00:25
PROVIDERS: Internal Medicine; Physician Assistant; Student in an Organized Health Care Education/Training Program; ADMIT Internal Medicine; ATTEND Internal Medicine
DX: I11.0 Hypertensive heart disease with heart failure (principal); I50.23 Acute on chronic systolic (congestive) heart failure; I21.4 Non-ST elevation (NSTEMI) myocardial infarction; D64.9 Anemia, unspecified; I25.110 Atherosclerotic heart disease of native coronary artery with unstable angina pectoris; Z66 Do not resuscitate; E83.42 Hypomagnesemia; E11.65 Type 2 diabetes mellitus with hyperglycemia; R13.10 Dysphagia, unspecified; G47.33 Obstructive sleep apnea (adult) (pediatric); J44.9 Chronic obstructive pulmonary disease, unspecified; E87.6 Hypokalemia; E11.42 Type 2 diabetes mellitus with diabetic polyneuropathy; J45.901 Unspecified asthma with (acute) exacerbation; Z86.73 Personal history of transient ischemic attack (TIA), and cerebral infarction without residual deficits; Z51.5 Encounter for palliative care; Z79.4 Long term (current) use of insulin; Z95.1 Presence of aortocoronary bypass graft; Z80.3 Family history of malignant neoplasm of breast; Z88.0 Allergy status to penicillin; Z91.041 Radiographic dye allergy status; Z79.1 Long term (current) use of non-steroidal anti-inflammatories (NSAID); Z79.51 Long term (current) use of inhaled steroids; Z79.899 Other long term (current) drug therapy

== ENCOUNTER 2021-11-14 20:47 | Inpatient (IN) | payer OTHER, MEDICAID ==
[~2021-11-14 20:47] MED LIST changes: +AMBIEN10 M1 PO; +IMDUR SA30 MG PO; +K-TAB10 MEQ PO
[2021-11-14 21:53] VITALS: BP 94/49
[2021-11-15 08:00] VITALS: BP 100/70
[2021-11-15 12:00] VITALS: BP 132/79
[2021-11-15 16:00] VITALS: BP 106/61
[2021-11-15 20:00] VITALS: BP 114/64
[2021-11-16] VITALS: BP 118/66
[2021-11-16 08:00] VITALS: BP 124/64
[2021-11-16 12:00] VITALS: BP 147/84
[2021-11-16 16:00] VITALS: BP 136/85
== END 2021-11-16 19:43 | DRG 871 ==
LOC: 4E 20:47
PROVIDERS: ADMIT Internal Medicine; ATTEND Internal Medicine
DX: A41.9 Sepsis, unspecified organism (principal); J69.0 Pneumonitis due to inhalation of food and vomit; Z51.5 Encounter for palliative care; N17.0 Acute kidney failure with tubular necrosis; E87.2 Acidosis; R65.20 Severe sepsis without septic shock; Z20.822 Contact with and (suspected) exposure to COVID-19; E86.0 Dehydration